=== PATIENT | female | born 1990 | race Caucasian/White ===

== ENCOUNTER 2022-01-09 21:10 | Outpatient (CLI) | payer MEDICAID ==
[~2022-01-09] VITALS: Ht 170.2 cm; Wt 77.4 kg
[2022-01-09 21:25] VITALS: BP 120/67
[2022-01-09 21:45] LABS: BILIRUBIN,URINE NEGATIVE (NEGATIVE); CLARITY,URINE CLEAR; COLOR,URINE YELLOW; GLUCOSE, URINE (UA) NEGATIVE (NEGATIVE); KETONES,URINE NEGATIVE (NEGATIVE); LEUKOCYTE ESTERASE ,URINE TRACE (NEGATIVE); NITRITE,URINE POSITIVE (NEGATIVE); PH,URINE 6.5 (5-9); PROTEIN,URINE NEGATIVE (NEGATIVE)
[2022-01-09 22:15] LABS: BACTERIA,URINE MODERATE /HPF
[2022-01-09] MEDS ORDERED: NS IV 1000 ML 1,000 ML ONE (23:25)
[2022-01-09] MEDS ORDERED: AMOXICILLIN 250 MG (POLYMOX) CAP PO ONE (23:30)
[2022-01-09] MEDS ORDERED: NS IV 1000 ML 1,000 ML IV SCH (23:30)
[2022-01-09] MEDS ORDERED: AMOXICILLIN 500 MG (POLYMOX) CAP PO ONE (23:38)
[2022-01-10] MEDS ORDERED: NS IV 1000 ML 1,000 ML IV SCH (00:30)
[2022-01-10 00:46] VITALS: BP 108/61
[2022-01-10 08:45] VITALS: BP 89/44
[2022-01-10] MEDS ORDERED: AMOX500T2 PO (09:53)
--- NOTE | 2022-01-10 09:54 | Clinic Account Progress/Dx ---
Clinic Account Progress/Dx DIAGNOSIS: Date Seen by Provider: Jan 10, 2022 Time Seen by Provider: 09:40 Term intrauterine 37 weeks gestation Urinary tract infection Contractions without cervical change Progress Note: Pt came in on 01/09 and was having frequent contractions, noted to have one heart rate deceleration when marielena back to back, so she was given IVF and observed overnight. heart rate tracing category I at time of discharge and she had decreased frequency of contractions with no cervical change. KILLIAN YUAN MD Jan 10, 2022 09:54
[2022-01-10 10:08] VITALS: BP 118/58
== END 2022-01-10 10:05 | disposition home or self-care (01) ==
LOC: LDRP 21:10 → WSo 21:10
PROVIDERS: ATTEND Family Medicine
DX: O42.92 Full-term premature rupture of membranes, unspecified as to length of time between rupture and onset of labor (principal); Z3A.37 37 weeks gestation of pregnancy
CPT/HCPCS: 81000; 84112; 87088

== ENCOUNTER 2022-01-12 23:48 | Inpatient (IN) | payer MEDICAID ==
[~2022-01-12] VITALS: Ht 170.2 cm; Wt 76.2 kg
[~2022-01-12 23:48] MED LIST: AMOX500T2 PO
[2022-01-13] VITALS (22 sets, daily range): BP systolic 94–133; BP diastolic 46–69
[2022-01-13 00:13] LABS: BILIRUBIN,URINE NEGATIVE (NEGATIVE); CLARITY,URINE CLEAR; COLOR,URINE YELLOW; GLUCOSE, URINE (UA) NEGATIVE (NEGATIVE); KETONES,URINE NEGATIVE (NEGATIVE); LEUKOCYTE ESTERASE ,URINE NEGATIVE (NEGATIVE); NITRITE,URINE NEGATIVE (NEGATIVE); PROTEIN,URINE NEGATIVE (NEGATIVE)
[2022-01-13 00:34] LABS: BACTERIA,URINE NEGATIVE /HPF; SQUAMOUS EPITHELIAL CELL,UR 0-2 /HPF; WBC,URINE RARE /HPF
[2022-01-13] MEDS ORDERED: fentaNYL 2 mcg/ml BUPIVA 0.125 100 ML ONE (00:37)
[2022-01-13] MEDS ORDERED: D5 LR IV SOLUTION 1,000 ML IV ONE (00:38)
[2022-01-13 01:00] LABS: BASOPHILS % (AUTO) 0 % (0-10); EOSINOPHILS # (AUTO) 0.1 10^3/uL (0.0-0.3); EOSINOPHILS % (AUTO) 1 % (0-10); HEMATOCRIT 31 % (35-52); HEMOGLOBIN 10.2 g/dL (11.5-16.0); LYMPHOCYTES # (AUTO) 3.2 10^3/uL (1.0-4.0); LYMPHOCYTES % (AUTO) 24 % (12-44); MEAN CORPUSCULAR HEMOGLOBIN 31 pg (25-34); MEAN CORPUSCULAR HGB CONC 33 g/dL (32-36); MEAN CORPUSCULAR VOLUME 95 fL (80-99); MEAN PLATELET VOLUME 11.1 fL (9.0-12.2); MONOCYTES # (AUTO) 1.3 10^3/uL (0.0-1.0); MONOCYTES % (AUTO) 9 % (0-12); NEUTROPHILS # (AUTO) 8.6 10^3/uL (1.8-7.8); NEUTROPHILS % (AUTO) 65 % (42-75); PLATELET COUNT 232 10^3/uL (130-400); WHITE BLOOD COUNT 13.3 10^3/uL (4.3-11.0)
[2022-01-13] MEDS ORDERED: fentaNYL 2 mcg/ml BUPIVA 0.125 100 ML IV SCH (01:00)
[2022-01-13] MEDS ORDERED: D5 LR IV SOLUTION 1,000 ML IV SCH (01:00)
[2022-01-13] MEDS ORDERED: MINERAL OIL 30 ML OIL TOP PRN (01:00)
[2022-01-13] MEDS ORDERED: CATHETER FLUSH 10 ML SYR IV PRN (01:00)
[2022-01-13] MEDS ORDERED: NALOXONE 0.4 MG/ML 1 ML (NARCAN) VIAL IV PRN (01:00)
[2022-01-13] MEDS ORDERED: LACTATED RINGERS 1,000 ML IV ONE (01:00)
[2022-01-13] MEDS ORDERED: fentaNYL INJ 100 MCG/2 ML AMP ONE (02:18)
[2022-01-13] MEDS ORDERED: OXYTOCIN PRE-MIX DRIP 500 ML IV ONE ×2 (02:32→03:45)
[2022-01-13] MEDS: OXYTOCIN PRE-MIX DRIP 500 ML IV SCH ×2 (03:09→03:39)
[2022-01-13] MEDS ORDERED: LIDOCAINE 1% INJ 50 ML (XYLOCAINE) VIAL ONE (03:12)
--- NOTE | 2022-01-13 03:47 | History & Physical-OB ---
OB - Chief Complaint & HPI Date/Time Date of Admission: Date of Admission: Jan 13, 2022 at 00:27 Date seen by a Provider: Jan 13, 2022 Time Seen by a Provider: 03:02 Chief Complaint/History OB-Reason for Admission/Chief: Onset of Labor Hx : 2 Hx Para: 1 Expected Date of Delivery: Jan 25, 2022 Gestational Age in Weeks: 38 Gestational Age in Days: 2 History of Labs A+, Ab neg Rub Imm HIV/RPR/HepB/C NR Normal GTT GBS Neg Allergies and Home Medications Allergies Coded Allergies: No Known Drug Allergies (Unverified , 01/09/22) Patient Home Medication List Home Medication List Reviewed: Yes Amoxicillin (Amoxicillin) 500 Mg Tablet, 500 MG PO BID Prescribed by: KILLIAN YUAN on 01/10/22 0953 Last Action: Reviewed OB - History Hx of Present Ultrasounds: Normal mid trimester US, Other (Transition of care @ 28 weeks, initiated care in [place] in 1st trimester) Obstetrical Complications: None Medical Complications: None Obstetrical History Hx : 2 Hx Para: 1 Number of Living Children: 1 Patient Past Medical History N/a Social History/Family History Alcohol Use: Denies Use Recreational Drug Use: No Smoking Cessation: Current some day smoker 2nd Hand Smoke Exposure: No Immunizations Influenza Vaccine Up-to-Date: No; Not Current Tetanus Booster (TDap): Less than 5yrs Rubella: immune RPR/VDRL: Negative GBS Status: Negative HBsAG: Negative OB - Admission Exam Physical Exam Vitals: Vital Signs 01/13/22 00:00 Temp 36.8 Pulse 101 Resp 18 Pulse Ox 97 O2 Delivery Room Air HEENT: NCAT Heart: Rhythm Normal Lungs: Clear Abdomen: Gravid Extremities: Normal Cervical Dilatation: 8cm Effacement: 100% Station: 0 Membranes: Ruptured Amniotic Fluid: Other (Bloody show) Heart Rate: 130's Accelerations: Accelerations Present Decelerations: Early Decelerations Short Term Variability: Present Driller Helper Variability: Average (6-25) Contractions on Admission: < 5 Minutes Apart Intensity: Moderate Labs Laboratory Tests Test 01/13/22 00:00 01/13/22 00:50 Range/Units Urine Color YELLOW Urine Clarity CLEAR Urine pH 7.0 5-9 Urine Specific [place] 1.020 1.016-1.022 Urine Protein NEGATIVE NEGATIVE Urine Glucose (UA) NEGATIVE NEGATIVE Urine Ketones NEGATIVE NEGATIVE Urine Nitrite NEGATIVE NEGATIVE Urine Bilirubin NEGATIVE NEGATIVE Urine Urobilinogen 0.2 < = 1.0 MG/DL Urine Leukocyte Esterase NEGATIVE NEGATIVE Urine RBC (Auto) NEGATIVE NEGATIVE Urine RBC NONE /HPF Urine WBC RARE /HPF Urine Squamous Epithelial Cells 0-2 /HPF Urine Crystals NONE /LPF Urine Bacteria NEGATIVE /HPF Urine Casts NONE /LPF Urine Mucus NEGATIVE /LPF Urine Culture Indicated NO Membranes Rupture POSITIVE White Blood Count 13.3 H 4.3-11.0 10^3/uL Red Blood Count 3.26 L 3.80-5.11 10^6/uL Hemoglobin 10.2 L 11.5-16.0 g/dL Hematocrit 31 L 35-52 % Mean Corpuscular Volume 95 80-99 fL Mean Corpuscular Hemoglobin 31 25-34 pg Mean Corpuscular Hemoglobin Concent 33 32-36 g/dL Red Cell Distribution Width 12.9 10.0-14.5 % Platelet Count 232 130-400 10^3/uL Mean Platelet Volume 11.1 9.0-12.2 fL Immature Granulocyte % (Auto) 1 % Neutrophils (%) (Auto) 65 42-75 % Lymphocytes (%) (Auto) 24 12-44 % Monocytes (%) (Auto) 9 0-12 % Eosinophils (%) (Auto) 1 0-10 % Basophils (%) (Auto) 0 0-10 % Neutrophils # (Auto) 8.6 H 1.8-7.8 10^3/uL Lymphocytes # (Auto) 3.2 1.0-4.0 10^3/uL Monocytes # (Auto) 1.3 H 0.0-1.0 10^3/uL Eosinophils # (Auto) 0.1 0.0-0.3 10^3/uL Basophils # (Auto) 0.0 0.0-0.1 10^3/uL Immature Granulocyte # (Auto) 0.1 0.0-0.1 10^3/uL OB - Assessment/Plan/Diagnosis Assessment Assessment: active labor Admission Dx third trimester 38 weeks gestation Admission Status: Inpatient Order (span 2 midnights) Reason for Inpatient Admission: Active labor Plan Other Plan 31 yo @ 38.2 wga here for active labor Plan - Expectant management - GBS neg - Epidural for pain control Copy Copies To 1: TRISH GLOVER MD, HOLLY R MD Jan 13, 2022 03:47
[2022-01-13] MEDS ORDERED: BENZOCAINE/MENTHOL (DERMOPLAST) 56 ML CAN TP PRN (04:00)
[2022-01-13] MEDS ORDERED: WITCH HAZEL(TUCKS) 40 EA JAR TOP PRN (04:00)
--- NOTE | 2022-01-13 04:02 | OB Labor & Delivery Record ---
Vag Delivery Note Vag Delivery Note Date of Delivery: 01/13/22 Preoperative Diagnosis: Lucas Harding is a (31 /Para 2 / 1, Gestational Age (wks)38.2 here in active labor Postoperative Diagnosis: Same Surgeon: TRISH GLOVER MD Metal Coater Operator: None Anesthesia: Epidural Delivery Type: Vaccum assisted delivery of the head, @ 0302 Findings: Viable famale , apgars 8/9, weight 7#4, 3285 grams Lacerations: Left labial laceration Intact placenta with 3 vessel cord. No nuchal cord, body cord or shoulder dystocia Estimated Blood Loss: 125 ml Complications: None Condition: Stable Description of Procedure: The patient is a 31 year old female who presented in active labor. She was admitted and informed consent was obtained. Her labor course was unremarkable. She progressed to complete dilatation and began to push. She was then set up for delivery. The 's head was delivered atraumatically in the DONALDO position after vacuum assisted delivery of head with 1 push. The shoulders and remainder of the 's body were then delivered without difficulty. Upon delivery, the head was held below the level of the perineum and the mouth and nares were bulb suctioned. The cord was doubly clamped and cut by FOB after 3 min delay and the infant was handed off to the pediatric staff. An intact placenta with 3-vessel cord delivered via Chang and there was found to be minimal bleeding.~ Vigorous fundal massage was performed and the fundus was found to be firm. IV oxytocin was given. Examination of the vagina and perineum revealed a left labial laceration repaired in the usual fashion with 3-0 vicryl suture. Following the repair, sponge, instrument and needle counts were correct. Mom and baby were both in stable condition in the labor suite. Vitals - Labs Vital Signs - I&O Vital Signs Date Time Temp Pulse Resp B/P (MAP) Pulse Ox O2 Delivery O2 Flow Rate FiO2 01/13/22 00:00 36.8 101 18 97 Room Air Labs Laboratory Tests 01/13/22 00:00: Urine Color YELLOW, Urine Clarity CLEAR, Urine pH 7.0, Urine Specific [place] 1.020, Urine Protein NEGATIVE, Urine Glucose (UA) NEGATIVE, Urine Ketones NEGATIVE, Urine Nitrite NEGATIVE, Urine Bilirubin NEGATIVE, Urine Urobilinogen 0.2, Urine Leukocyte Esterase NEGATIVE, Urine RBC (Auto) NEGATIVE, Urine RBC NONE, Urine WBC RARE, Urine Squamous Epithelial Cells 0-2, Urine Crystals NONE, Urine Bacteria NEGATIVE, Urine Casts NONE, Urine Mucus NEGATIVE, Urine Culture Indicated NO, Membranes Rupture POSITIVE 01/13/22 00:50: White Blood Count 13.3H, Red Blood Count 3.26L, Hemoglobin 10.2L, Hematocrit 31L , Mean Corpuscular Volume 95, Mean Corpuscular Hemoglobin 31, Mean Corpuscular Hemoglobin Concent 33, Red Cell Distribution Width 12.9, Platelet Count 232, Mean Platelet Volume 11.1, Immature Granulocyte % (Auto) 1, Neutrophils (%) (Auto) 65, Lymphocytes (%) (Auto) 24, Monocytes (%) (Auto) 9, Eosinophils (%) (Auto) 1, Basophils (%) (Auto) 0, Neutrophils # (Auto) 8.6H, Lymphocytes # (Auto) 3.2, Monocytes # (Auto) 1.3H, Eosinophils # (Auto) 0.1, Basophils # (Auto) 0.0, Immature Granulocyte # (Auto) 0.1 TRISH GLOVER MD Jan 13, 2022 04:02
[2022-01-13] MEDS ORDERED: IBUPROFEN 600 MG (MOTRIN) TAB PO ONE (04:42)
[2022-01-13] MEDS: IBUPROFEN 600 MG (MOTRIN) TAB PO SCH ×3 (04:44→21:57)
[2022-01-13] MEDS ORDERED: CATHETER FLUSH 10 ML SYR IV SCH ×2 (06:00)
[2022-01-13] MEDS: ACETAMINOPHEN 500 MG TAB (TYLENOL) PO SCH ×2 (08:46→15:37)
[2022-01-13] MEDS: DOCUSATE SODIUM 100 MG (COLACE) CAP PO SCH ×2 (08:46→21:57)
[2022-01-13] MEDS: FERROUS SULF 325 MG (IRON) TAB PO SCH (08:46)
[2022-01-13] MEDS: PRENATAL VITAMIN 1 EA TAB PO SCH (08:46)
--- NOTE | 2022-01-13 13:17 | Anesthesia-Regional Post-Op ---
Regional Patient Condition Mental Status: Alert, Oriented x3 Circulation: Same as Pre-Op Headache: Absent Sensation: Full Recovery Motor Block: Absent Post Op Complications Complications None Follow Up Care/Instructions Patient Instructions None needed. Anesthesia/Patient Condition Patient is doing well, no complaints, stable vital signs, no apparent adverse anesthesia problems. No complications reported per nursing. KEESHA NICHOLSON CRNA Jan 13, 2022 13:17
[2022-01-14 04:24] VITALS: BP 110/55
[2022-01-14] MEDS: IBUPROFEN 600 MG (MOTRIN) TAB PO SCH ×2 (04:24→10:55)
[2022-01-14 05:41] LABS: BASOPHILS # (AUTO) 0.1 10^3/uL (0.0-0.1); BASOPHILS % (AUTO) 1 % (0-10); EOSINOPHILS # (AUTO) 0.2 10^3/uL (0.0-0.3); EOSINOPHILS % (AUTO) 1 % (0-10); HEMATOCRIT 26 % (35-52); HEMOGLOBIN 8.5 g/dL (11.5-16.0); LYMPHOCYTES # (AUTO) 3.8 10^3/uL (1.0-4.0); LYMPHOCYTES % (AUTO) 30 % (12-44); MEAN CORPUSCULAR HEMOGLOBIN 31 pg (25-34); MEAN CORPUSCULAR HGB CONC 32 g/dL (32-36); MEAN CORPUSCULAR VOLUME 97 fL (80-99); MEAN PLATELET VOLUME 11.6 fL (9.0-12.2); MONOCYTES # (AUTO) 1.3 10^3/uL (0.0-1.0); MONOCYTES % (AUTO) 10 % (0-12); NEUTROPHILS # (AUTO) 7.5 10^3/uL (1.8-7.8); NEUTROPHILS % (AUTO) 59 % (42-75); PLATELET COUNT 195 10^3/uL (130-400); WHITE BLOOD COUNT 12.9 10^3/uL (4.3-11.0)
[2022-01-14] MEDS: FERROUS SULF 325 MG (IRON) TAB PO SCH (08:27)
[2022-01-14] MEDS: ACETAMINOPHEN 500 MG TAB (TYLENOL) PO SCH (08:27)
[2022-01-14] MEDS: DOCUSATE SODIUM 100 MG (COLACE) CAP PO SCH (08:27)
[2022-01-14] MEDS: PRENATAL VITAMIN 1 EA TAB PO SCH (08:27)
[2022-01-14 08:28] VITALS: BP 98/52
[2022-01-14] MEDS ORDERED: IBUP-844 PO (09:23)
[2022-01-14] MEDS ORDERED: PNV1TABL67 PO (09:23)
[2022-01-14] MEDS ORDERED: FERR325T24 PO (09:23)
[2022-01-14] MEDS ORDERED: DOCU100C37 PO (09:23)
--- NOTE | 2022-01-14 09:23 | Discharge Summary ---
Discharge Summary Hospital Course Hospital Course Date of Admission: Jan 13, 2022 at 00:27 Admission Diagnosis : Spontaneous rupture of membranes at full term Family Physician/Provider: Sujatha Melendez MD Date of Discharge: 01/14/22 Discharge Diagnosis: s/p vacuum assisted vaginal delivery asymptomatic acute blood loss () anemia Hospital Course: Pt admitted after SROM at home at 3 cm cervical dilation, rapid progression with outlet vacuum assisted vaginal delivery. anemia asymptomatic, discharged with iron and vitamin. Was being treated for UTI prior to admission, antibiotics continued on d/c. Labs and Pending Lab Test: Laboratory Tests 01/14/22 05:19: White Blood Count 12.9H, Red Blood Count 2.72L, Hemoglobin 8.5L, Hematocrit 26L, Mean Corpuscular Volume 97, Mean Corpuscular Hemoglobin 31, Mean Corpuscular Hemoglobin Concent 32, Red Cell Distribution Width 13.1, Platelet Count 195, Mean Platelet Volume 11.6, Immature Granulocyte % (Auto) 1, Neutrophils (%) (Auto) 59, Lymphocytes (%) (Auto) 30, Monocytes (%) (Auto) 10, Eosinophils (%) (Auto) 1, Basophils (%) (Auto) 1, Neutrophils # (Auto) 7.5, Lymphocytes # (Auto) 3.8, Monocytes # (Auto) 1.3H, Eosinophils # (Auto) 0.2, Basophils # (Auto) 0.1, Immature Granulocyte # (Auto) 0.1 Home Meds Active Pnv Plus Multivit Tab (Pnv with Ca,No.72/Iron/FA) 1 Each Tablet 1 Ea PO DAILY@0700 Docusate Sodium 100 Mg Capsule 100 Mg PO BID Ibu (Ibuprofen) 600 Mg Tablet 600 Mg PO Q6HR PRN Ferosul (Ferrous Sulfate) 325 Mg Tablet 325 Mg PO DAILY Amoxicillin 500 Mg Tablet 500 Mg PO BID Assessment/Pt DC Instructions Follow up with Dr. Melendez in 6 weeks for visit. Discharge Diet: No Restrictions Activity as Tolerated: Yes (avoid strenuous activity x 6 weeks, nothing in the vagina for 6 weeks) Discharge Physical Examination Allergies: Coded Allergies: No Known Drug Allergies (Unverified , 01/09/22) General Appearance: No Apparent Distress, WD/WN Respiratory: Lungs Clear, Normal Breath Sounds Cardiovascular: Regular Rate, Rhythm, No Murmur Gastrointestinal: Other (fundus firm below umbilicus, nontender) Extremity: No Pedal Edema Skin: Normal Color, Warm/Dry Neurologic/Psychiatric: Alert, No Motor/Sensory Deficits KILLIAN YUAN MD Jan 14, 2022 09:23
== END 2022-01-14 11:10 | disposition home or self-care (01) | DRG 806 ==
LOC: WSo 23:48 → LDRP 23:49 → WSo 01-13 00:27 → LDRP 01-13 00:27
PROVIDERS: ADMIT Family Medicine; ATTEND Family Medicine
PROC: 10D07Z6 Extraction of Products of Conception, Vacuum, Via Natural or Artificial Opening (ICD-10-PCS; principal; 2022-01-13)
PROC: 0UQMXZZ Repair Vulva, External Approach (ICD-10-PCS; 2022-01-13)
DX: O99.334 Smoking (tobacco) complicating childbirth (principal); D62 Acute posthemorrhagic anemia; Z37.0 Single live birth; Z3A.38 38 weeks gestation of pregnancy; F17.210 Nicotine dependence, cigarettes, uncomplicated; O90.81 Anemia of the puerperium
CPT/HCPCS: 36415; 81000; 84112; 85025; 86850; 86900; 86901; 99212

== ENCOUNTER 2022-07-10 19:21 | Emergency (ER) | payer MEDICAID ==
[~2022-07-10 19:21] MED LIST changes: +DOCU100C37 PO; +FERR325T24 PO; +IBUP-844 PO; +PNV1TABL67 PO
[2022-07-10] MEDS ORDERED: KETOROLAC 30 MG/ML VIAL IVP ONE (19:30)
[2022-07-10] MEDS ORDERED: morphine INJ 10 MG/ML 1ML (SYR OR VIAL) IVP STA (19:30)
[2022-07-10] MEDS ORDERED: NS IV 1000 ML 1,000 ML IV STA (19:32)
--- NOTE | 2022-07-10 19:34 | ED Abdominal Pain ---
General Chief Complaint: Abdominal/GI Problems Stated Complaint: ABD PAIN Source of Information: Patient Exam Limitations: No Limitations History of Present Illness Date Seen by Provider: Jul 10, 2022 Time Seen by Provider: 19:23 Initial Comments 32-year-old female with no pertinent past medical history coming in due to lower abdominal pain. Started at noon yesterday (>24 hours ago), constant, sharp/crampy pain. Nothing really seems to make it better or worse. Has not tried any medicines for it as of yet. Feels similar to a couple years ago when she had a ruptured ovarian cyst. She did have a baby 6 months ago, had an IUD placed 1 month ago, and LMP was roughly 3-1/2 weeks ago. Denies any dysuria, hematuria, urinary frequency, vaginal discharge or odor, diarrhea, nausea, vomiting, weakness, numbness, rash, chest pain, shortness of breath, fever, chills, or any other concerns. Allergies and Home Medications Allergies Coded Allergies: No Known Drug Allergies (Unverified , 01/09/22) Patient Home Medication List Home Medication List Reviewed: Yes Amoxicillin (Amoxicillin) 500 Mg Tablet, 500 MG PO BID Prescribed by: KILLIAN YUAN on 01/10/22 09 Docusate Sodium (Docusate Sodium) 100 Mg Capsule, 100 MG PO BID Prescribed by: KILLIAN YUAN on 01/14/22922 Ferrous Sulfate (Ferosul) 325 Mg Tablet, 325 MG PO DAILY Prescribed by: KILLIAN YUAN on 01/14/22922 Ibuprofen (Ibu) 600 Mg Tablet, 600 MG PO Q6HR PRN for PAIN-MODERATE (5-7) Prescribed by: KILLIAN YUAN on 01/14/22922 Pnv with Ca,No.72/Iron/FA (Pnv Plus Multivit Tab) 1 Each Tablet, 1 EA PO DAILY@0700 Prescribed by: KILLIAN YUAN on 01/14/22922 Review of Systems Review of Systems Constitutional: No fever EENTM: No Blurred Vision Respiratory: Denies Cough Gastrointestinal: Abdominal Pain Genitourinary: No Symptoms Reported Musculoskeletal: no symptoms reported Skin: no symptoms reported Psychiatric/Neurological: No Symptoms Reported Endocrine: No Symptoms Reported Hematologic/Lymphatic: No Symptoms Reported All Other Systems Reviewed Negative Unless Noted: Yes Past Rrpxcuz-Gnmfzh-Giifws Hx Patient Social History Tobacco Use?: Yes Tobacco type used: Cigarettes Use of E-Cig and/or Vaping dev: No Substance use?: No Alcohol Use?: No Pt feels they are or have been: No Immunizations Up To Date Tetanus Booster (TDap): Less than 5yrs Past Medical History Surgeries: Yes Tonsillectomy Physical Exam Vital Signs Vital Signs - First Documented 07/10/22 19:24 Temp 36.7 Pulse 105 Resp 20 B/P (MAP) 130/78 (95) Pulse Ox 97 O2 Delivery Room Air Capillary Refill : Height/Weight/BMI Height: '" Weight: lbs. oz. kg; 26.30 BMI Method: General Appearance: WD/WN, no apparent distress HEENT: PERRL/EOMI, normal ENT inspection, pharynx normal Neck: non-tender, full range of motion, supple, normal inspection Respiratory: chest non-tender, lungs clear, normal breath sounds, no respiratory distress, no accessory muscle use Cardiovascular: regular rate, rhythm, no edema, no murmur Gastrointestinal: normal bowel sounds, soft; No distended, No guarding, No rebound; tenderness Extremities: normal range of motion, non-tender, normal inspection, no pedal ed ning, no calf tenderness, normal capillary refill Back: normal inspection Neurologic/Psychiatric: no motor/sensory deficits, alert, normal mood/affect Skin: normal color, warm/dry Lymphatic: no adenopathy Progress/Results/Core Measures Results/Orders Lab Results Laboratory Tests Test 07/10/22 19:26 07/10/22 19:30 Range/Units Urine Color YELLOW Urine Clarity CLEAR Urine pH 6.0 5-9 Urine Specific [place] 1.010 L 1.016-1.022 Urine Protein NEGATIVE NEGATIVE Urine Glucose (UA) NEGATIVE NEGATIVE Urine Ketones NEGATIVE NEGATIVE Urine Nitrite NEGATIVE NEGATIVE Urine Bilirubin NEGATIVE NEGATIVE Urine Urobilinogen 0.2 < = 1.0 MG/DL Urine Leukocyte Esterase NEGATIVE NEGATIVE Urine RBC (Auto) NEGATIVE NEGATIVE Urine RBC NONE /HPF Urine WBC 0-2 /HPF Urine Squamous Epithelial Cells 2-5 /HPF Urine Crystals NONE /LPF Urine Bacteria TRACE /HPF Urine Casts NONE /LPF Urine Mucus NEGATIVE /LPF Urine Culture Indicated NO White Blood Count 12.8 H 4.3-11.0 10^3/uL Red Blood Count 4.05 3.80-5.11 10^6/uL Hemoglobin 12.9 11.5-16.0 g/dL Hematocrit 37 35-52 % Mean Corpuscular Volume 92 80-99 fL Mean Corpuscular Hemoglobin 32 25-34 pg Mean Corpuscular Hemoglobin Concent 35 32-36 g/dL Red Cell Distribution Width 12.4 10.0-14.5 % Platelet Count 282 130-400 10^3/uL Mean Platelet Volume 9.8 9.0-12.2 fL Immature Granulocyte % (Auto) 0 % Neutrophils (%) (Auto) 64 42-75 % Lymphocytes (%) (Auto) 26 12-44 % Monocytes (%) (Auto) 8 0-12 % Eosinophils (%) (Auto) 1 0-10 % Basophils (%) (Auto) 1 0-10 % Neutrophils # (Auto) 8.2 H 1.8-7.8 10^3/uL Lymphocytes # (Auto) 3.4 1.0-4.0 10^3/uL Monocytes # (Auto) 1.0 0.0-1.0 10^3/uL Eosinophils # (Auto) 0.2 0.0-0.3 10^3/uL Basophils # (Auto) 0.1 0.0-0.1 10^3/uL Immature Granulocyte # (Auto) 0.0 0.0-0.1 10^3/uL Sodium Level 138 135-145 MMOL/L Potassium Level 4.1 3.6-5.0 MMOL/L Chloride Level 107 98-107 MMOL/L Carbon Dioxide Level 20 L 21-32 MMOL/L Anion Gap 11 5-14 MMOL/L Blood Urea Nitrogen 7 7-18 MG/DL Creatinine 0.54 L 0.60-1.30 MG/DL Estimat Glomerular Filtration Rate 126 BUN/Creatinine Ratio 13 Glucose Level 100 70-105 MG/DL Calcium Level 8.9 8.5-10.1 MG/DL Corrected Calcium 8.5 8.5-10.1 MG/DL Total Bilirubin 0.2 0.1-1.0 MG/DL Aspartate Amino Transf (AST/SGOT) 12 5-34 U/L Alanine Aminotransferase (ALT/SGPT) 11 0-55 U/L Alkaline Phosphatase 66 40-136 U/L Total Protein 6.8 6.4-8.2 GM/DL Albumin 4.5 3.2-4.5 GM/DL Lipase 55 8-78 U/L My Orders Orders - CATRACHO CABRERA MD Urine Bedside (07/10/22 19:25) Ct Abdomen/Pelvis W (07/10/22 19:30) Cbc With Automated Diff (07/10/22 19:30) Comprehensive Metabolic Panel (07/10/22 19:30) Lipase (07/10/22 19:30) Ua Culture If Indicated (07/10/22 19:30) Morphine Injection (Morphine Injection (07/10/22 19:30) Ketorolac Injection (Toradol Injection) (07/10/22 19:30) Ns Iv 1000 Ml (Sodium Chloride 0.9%) (07/10/22 19:32) Iohexol Injection (Omnipaque 350 Mg/Ml 1 (07/10/22 19:45) Received Contrast (Hold Metformin- Contr (07/10/22 19:45) Ns (Ivpb) (Sodium Chloride 0.9% Ivpb Bag (07/10/22 19:45) Medications Given in ED Current Medications Medications Dose Ordered Sig/Shawna Route Start Time Stop Time Status Last Admin Dose Admin Iohexol 100 ml ONCE ONCE IV 07/10/22 19:45 07/10/22 19:46 DC 07/10/22 19:49 100 ML Ketorolac Tromethamine 15 mg ONCE ONCE IVP 07/10/22 19:30 07/10/22 19:31 DC 07/10/22 19:35 15 MG Sodium Chloride 100 ml ONCE ONCE IV 07/10/22 19:45 07/10/22 19:46 DC 07/10/22 19:48 100 ML Vital Signs/I&O 07/10/22 19:24 Temp 36.7 Pulse 105 Resp 20 B/P (MAP) 130/78 (95) Pulse Ox 97 O2 Delivery Room Air Progress Progress Note : Progress Note 32-year-old female presenting for lower abdominal pain. ABCs were intact and vitals are stable on presentation. Physical exam with lower abdominal tenderness but no signs of peritonitis. An IV was placed and she was given a bolus of IV fluids, morphine for pain, as well as Toradol for pain. Basic labs obtained and are significant for slightly elevated white blood cell count, normal urinalysis without evidence of infection, normal kidney function, negative test, normal LFTs, normal lipase. CT abdomen and pelvis obtained and is significant for a large ovarian cyst roughly 5 cm. There is also potentially a vaginal abscess. I did a digital exam of the vagina with a crop adjuster in the room, and she has no pain in that area and no abscess felt. In regards to the large cyst, she does have pain but it has improved. I discussed with her the phenomenon of ovarian torsion and described this to her. I discussed that she has had constant pain for over 24 hours, and given that, if it is torsion, there is nothing that can be done. Per our hospital protocols with ultrasound, they cannot be called in for pelvic pain for ovarian torsion if its been greater than 24 hours, and the protocol is to have it done urgently the next day. She also discussed with me quite frankly that it is okay with her if she loses her ovary as she does not want more children. I discussed that even if her ovary looks normal, without large cyst she likely will want to get it removed because of the risk for torsion in the future. I discussed this with the patient and I wrote the outpatient order for her for the ultrasound. She did improve pain with the morphine and the Toradol. I believe she is stable for discharge with outpatient follow-up. She was sent home with strict return precautions Diagnostic Imaging Diagonstic Imaging: CT (abd/pelvis) Comments NAME: COCO LAGUERRE [facility] REC#: [id number] PT STATUS: REG ER : 1990 PHYSICIAN: CATRACHO CABRERA MD ADMIT DATE: 07/10/22/ER FS Draft Date of Exam:07/10/22 CT ABDOMEN/PELVIS W PROCEDURE: CT abdomen and pelvis with contrast. TECHNIQUE: Multiple contiguous axial images were obtained through the abdomen and pelvis after administration of intravenous contrast. Auto Exposure Controls were utilized during the CT exam to meet ALARA standards for radiation dose reduction. All CT scans use one or more of the following dose optimizing techniques: automated exposure control, MA and/or KvP adjustment based on patient size and exam type or iterative reconstruction. DATE: July 10, 2022. COMPARISON: None. INDICATION: 32-year-old female, abdominal pain for two days. FINDINGS: There is mild dependent atelectasis in the right and left lower lobes. The heart is not enlarged. There is no pericardial effusion. The liver is unremarkable in size and contour. There is no identified liver lesion. The main, right and left portal veins are patent. The gallbladder is unremarkable. There is no identified intrahepatic or extrahepatic bile duct dilation. The main pancreatic duct is not abnormally dilated. Unremarkable appearance of the pancreatic parenchyma. The spleen is normal in size. The adrenal glands are unremarkable. Unremarkable appearance of the renal parenchyma. The urinary collecting systems are not distended. There is no identified renal or ureteral stone. The urinary bladder is unremarkable. Uterus is heterogeneous in attenuation which is nonspecific. There is an intrauterine contraceptive device in the midline uterus, likely in the endometrial cavity. There is a cystic left adnexal mass on axial image 159 measuring up to approximately 5.5 x 5.0 cm in size. The right adnexa is grossly unremarkable in appearance on limited CT assessment. The intestinal tract is not distended. The appendix is unremarkable. There is no free intraperitoneal air. There is no drainable fluid collection. There is a small amount of free pelvic fluid. There is no identified abnormally enlarged lymph node in the abdomen or pelvis which meets CT size criteria for adenopathy. There is a cystic focus on axial image 216 measuring 10 mm in size which is along the lateral aspect of the base of the vaginal tissues at its most posterior aspect. This potentially could reflect a cyst. Correlation for focal pain at this site is recommended. A fluid collection could also have this appearance. This is at the inferior margin of the field of view which does limit evaluation for adjacent inflammatory stranding. There is no acute osseous abnormality. IMPRESSION: CT abdomen and pelvis: 1. Probable left ovarian cyst measuring up to 5.6 x 5.0 cm in size. Pelvic ultrasound could be considered for further assessment. 2. Small amount of free pelvic fluid which may be physiologic. 3. Cystic focus at the level of the lateral and posterior margin of the base of the vagina which could relate to a cyst although fluid collection such as abscess would be difficult to exclude. Recommend correlation for focal pain at this site. Dictated on workstation # [id number] Dict: 07/10/222007 Trans: 07/10/222048 PJE [id number] Interpreted by: JORGE LUIS DUDLEY MD Electronically signed by: Departure Impression Primary Impression: Lower abdominal pain Additional Impression: Ovarian cyst Qualified Codes: N83.201 - Unspecified ovarian cyst, right side Disposition: HOME, SELF-CARE Condition: Stable Departure-Patient Inst. Decision time for Depature: 20:40 Referrals: JAMI LORENZO HOLLY R MD (PCP/Family) Primary Care Physician Patient Instructions: Abdominal Pain, Adult ED Add. Discharge Instructions: I recommend taking 600 mg of ibuprofen every 6 hours and 1000 mg of Tylenol every 6 hours. If you have pain on top of this I recommend taking the oxycodone. He can take Zofran for nausea. Call first thing in the morning to get the ultrasound scheduled and say you are told that it can be done tomorrow. If you are having trouble with this, my recommendation would be to go to the ER in [place] to expedite this. Ultimately I think you need to follow-up with Dr. Lorenzo to have this ovarian cyst removed if that is what the ultrasound still shows Scripts Ondansetron (Ondansetron Odt) 4 Mg Tab.rapdis 4 MG PO Q6H PRN for NAUSEA/VOMITING-1ST LINE for 5 Days, #20 TAB Prov: CATRACHO CABRERA MD 07/10/22 Oxycodone HCl (Oxycodone HCl) 5 Mg Tablet 5 MG PO Q6H PRN for PAIN-SEVERE (8-10) for 3 Days, #12 TAB Prov: CATRACHO CABRERA MD 07/10/22 Work/School Note: Work Release Form Date Seen in the Emergency Department: Jul 10, 2022 Return to Work: Jul 12, 2022 Restrictions: No Restrictions CATRACHO CABRERA MD Jul 10, 2022 19:34
[2022-07-10 19:36] LABS: BASOPHILS # (AUTO) 0.1 10^3/uL (0.0-0.1); BASOPHILS % (AUTO) 1 % (0-10); EOSINOPHILS # (AUTO) 0.2 10^3/uL (0.0-0.3); EOSINOPHILS % (AUTO) 1 % (0-10); HEMATOCRIT 37 % (35-52); HEMOGLOBIN 12.9 g/dL (11.5-16.0); LYMPHOCYTES # (AUTO) 3.4 10^3/uL (1.0-4.0); LYMPHOCYTES % (AUTO) 26 % (12-44); MEAN CORPUSCULAR HEMOGLOBIN 32 pg (25-34); MEAN CORPUSCULAR HGB CONC 35 g/dL (32-36); MEAN CORPUSCULAR VOLUME 92 fL (80-99); MEAN PLATELET VOLUME 9.8 fL (9.0-12.2); MONOCYTES % (AUTO) 8 % (0-12); NEUTROPHILS # (AUTO) 8.2 10^3/uL (1.8-7.8); NEUTROPHILS % (AUTO) 64 % (42-75); PLATELET COUNT 282 10^3/uL (130-400); WHITE BLOOD COUNT 12.8 10^3/uL (4.3-11.0)
[2022-07-10 19:37] LABS: BILIRUBIN,URINE NEGATIVE (NEGATIVE); CLARITY,URINE CLEAR; COLOR,URINE YELLOW; GLUCOSE, URINE (UA) NEGATIVE (NEGATIVE); KETONES,URINE NEGATIVE (NEGATIVE); LEUKOCYTE ESTERASE ,URINE NEGATIVE (NEGATIVE); NITRITE,URINE NEGATIVE (NEGATIVE); PROTEIN,URINE NEGATIVE (NEGATIVE)
[2022-07-10 19:41] LABS: BACTERIA,URINE TRACE /HPF; WBC,URINE 0-2 /HPF
[2022-07-10] MEDS ORDERED: IOHEXOL 350 MG/ML 100 ML (OMNIPAQUE 350) VIAL IV ONE (19:45)
[2022-07-10] MEDS ORDERED: NS 100 ML (IVPB) BAG IV ONE (19:45)
[2022-07-10] MEDS ORDERED: HOLD METFORMIN - RECEIVED CONTRAST 20 ML VIAL IV SCH (19:45)
[2022-07-10 19:54] LABS: POTASSIUM 4.1 MMOL/L (3.6-5.0)
[2022-07-10 19:55] LABS: ALBUMIN 4.5 GM/DL (3.2-4.5); BILIRUBIN,TOTAL 0.2 MG/DL (0.1-1.0); CALCIUM 8.9 MG/DL (8.5-10.1); CREATININE SERUM 0.54 MG/DL (0.60-1.30); TOTAL PROTEIN 6.8 GM/DL (6.4-8.2)
--- NOTE | 2022-07-10 20:51 | Diagnostic Imaging Report ---
PROCEDURE: CT abdomen and pelvis with contrast. TECHNIQUE: Multiple contiguous axial images were obtained through the abdomen and pelvis after administration of intravenous contrast. Auto Exposure Controls were utilized during the CT exam to meet ALARA standards for radiation dose reduction. All CT scans use one or more of the following dose optimizing techniques: automated exposure control, MA and/or KvP adjustment based on patient size and exam type or iterative reconstruction. DATE: July 10, 2022. COMPARISON: None. INDICATION: 32-year-old female, abdominal pain for two days. FINDINGS: There is mild dependent atelectasis in the right and left lower lobes. The heart is not enlarged. There is no pericardial effusion. The liver is unremarkable in size and contour. There is no identified liver lesion. The main, right and left portal veins are patent. The gallbladder is unremarkable. There is no identified intrahepatic or extrahepatic bile duct dilation. The main pancreatic duct is not abnormally dilated. Unremarkable appearance of the pancreatic parenchyma. The spleen is normal in size. The adrenal glands are unremarkable. Unremarkable appearance of the renal parenchyma. The urinary collecting systems are not distended. There is no identified renal or ureteral stone. The urinary bladder is unremarkable. Uterus is heterogeneous in attenuation which is nonspecific. There is an intrauterine contraceptive device in the midline uterus, likely in the endometrial cavity. There is a cystic left adnexal mass on axial image 159 measuring up to approximately 5.5 x 5.0 cm in size. The right adnexa is grossly unremarkable in appearance on limited CT assessment. The intestinal tract is not distended. The appendix is unremarkable. There is no free intraperitoneal air. There is no drainable fluid collection. There is a small amount of free pelvic fluid. There is no identified abnormally enlarged lymph node in the abdomen or pelvis which meets CT size criteria for adenopathy. There is a cystic focus on axial image 216 measuring 10 mm in size which is along the lateral aspect of the base of the vaginal tissues at its most posterior aspect. This potentially could reflect a cyst. Correlation for focal pain at this site is recommended. A fluid collection could also have this appearance. This is at the inferior margin of the field of view which does limit evaluation for adjacent inflammatory stranding. There is no acute osseous abnormality. IMPRESSION: CT abdomen and pelvis: 1. Probable left ovarian cyst measuring up to 5.6 x 5.0 cm in size. Pelvic ultrasound could be considered for further assessment. 2. Small amount of free pelvic fluid which may be physiologic. 3. Cystic focus at the level of the lateral and posterior margin of the base of the vagina which could relate to a cyst although fluid collection such as abscess would be difficult to exclude. Recommend correlation for focal pain at this site. Dictated by: Dictated on workstation # [id number]
[2022-07-10 21:20] VITALS: BP 105/55
[2022-07-10] MEDS ORDERED: OXYC5TAB PO (21:20)
[2022-07-10] MEDS ORDERED: ONDA4TAB11 PO (21:20)
[2022-07-11] MEDS ORDERED: IBUP-1773 PO ×2 (15:56→16:01)
[2022-07-11] MEDS ORDERED: OXYC-199 PO ×2 (15:56→16:01)
[2022-07-11] MEDS ORDERED: ACET-93 PO (16:01)
== END 2022-07-10 21:30 | disposition home or self-care (01) ==
LOC: EDUNIT# 19:21 → ER FS 19:22
DX: N83.202 Unspecified ovarian cyst, left side (principal); D72.829 Elevated white blood cell count, unspecified; F17.210 Nicotine dependence, cigarettes, uncomplicated; Z28.310 Unvaccinated for COVID-19
CPT/HCPCS: 36415; 74177; 80053; 81000; 83690; 84703; 85025; Q9967

== ENCOUNTER 2022-07-11 12:18 | Day surgery (SDC) | payer MEDICAID ==
[2022-07-11] VITALS (10 sets, daily range): BP systolic 97–108; BP diastolic 42–72
[~2022-07-11] VITALS: Ht 170 cm; Wt 67.5 kg
[~2022-07-11 12:18] MED LIST changes: -ACET-93 PO; -IBUP-1773 PO; -OXYC-199 PO
[2022-07-11 12:45] LABS: BASOPHILS # (AUTO) 0.1 10^3/uL (0.0-0.1); BASOPHILS % (AUTO) 1 % (0-10); EOSINOPHILS # (AUTO) 0.1 10^3/uL (0.0-0.3); EOSINOPHILS % (AUTO) 1 % (0-10); HEMATOCRIT 36 % (35-52); HEMOGLOBIN 12.3 g/dL (11.5-16.0); LYMPHOCYTES # (AUTO) 2.8 10^3/uL (1.0-4.0); LYMPHOCYTES % (AUTO) 24 % (12-44); MEAN CORPUSCULAR HEMOGLOBIN 32 pg (25-34); MEAN CORPUSCULAR HGB CONC 34 g/dL (32-36); MEAN CORPUSCULAR VOLUME 95 fL (80-99); MEAN PLATELET VOLUME 9.7 fL (9.0-12.2); MONOCYTES # (AUTO) 0.9 10^3/uL (0.0-1.0); MONOCYTES % (AUTO) 8 % (0-12); NEUTROPHILS # (AUTO) 7.7 10^3/uL (1.8-7.8); NEUTROPHILS % (AUTO) 67 % (42-75); PLATELET COUNT 280 10^3/uL (130-400); WHITE BLOOD COUNT 11.6 10^3/uL (4.3-11.0)
[2022-07-11 13:00] LABS: CALCIUM 8.7 MG/DL (8.5-10.1)
[2022-07-11 13:05] LABS: CREATININE SERUM 0.66 MG/DL (0.60-1.30)
--- NOTE | 2022-07-11 13:41 | ED GU-Female ---
General Chief Complaint: Abdominal/GI Problems Stated Complaint: LOWER ABD/PELVIC PAIN Nursing Triage Note: pt presents to ed via pov from home with complaints of lower abdominal/pelvic pain x 2 days. pt was seen in [facility] last night and told she had a ovarian cyst that she needed a follow up US today. Source: patient Exam Limitations: no limitations History of Present Illness Date Seen by Provider: Jul 11, 2022 Time Seen by Provider: 12:24 Initial Comments This 32-year-old woman presents to the emergency room from the ultrasound department where she just received a pelvic ultrasound for evaluation of ovarian cyst and pelvic pain. She had presented to the emergency room in [place] last night and underwent thorough evaluation including a CT scan. At that time, her pain had been present for greater than 24 hours. Her pain was rather intense and persistent. CT revealed a large left ovarian cyst greater than 5 cm. Based on callback protocol for evaluation of ovarian torsion, she was not immediately sent to [place] for ultrasound. Protocol for pain greater than 24 hours recommended ultrasound the following morning which patient did receive today. I received a call from Dr. Bacon, radiologist, immediately after the ultrasound expressing concern for ovarian torsion. The possibility of torsion was discussed between the patient and Dr. Cabrera last night and patient came to the hospital today prepared that she may need to have surgery for ovarian torsion. Patient has a history of pain from ovarian cysts and actually would not be disappointed if nephrectomy was necessary because she is done having children and would like to reduce risk for future ovarian cyst. Patient reports her pain is presently controlled at 5/10 after taking a hydrocodone at approximately 09:45. She has been n.p.o. since that time. Her last solid food consumption was at 20:20. She has normal vital signs and is a septic in appearance. CT also showed a fluid collection adjacent to the vagina concerning for possible abscess. This was also evaluated and documented by Dr. Cabrera. He performed a chaperoned pelvic exam and evaluated that area. He noted no evidence of abscess, infection, or even tenderness. Patient denies any pain in the vaginal area. Dr. Simpson, planning lead on-call, was notified of patient's situation upon her arrival to the ER. Allergies and Home Medications Allergies Coded Allergies: No Known Drug Allergies (Unverified , 01/09/22) Patient Home Medication List Home Medication List Reviewed: Yes Amoxicillin (Amoxicillin) 500 Mg Tablet, 500 MG PO BID Prescribed by: KILLIAN YUAN on 01/10/22952 Docusate Sodium (Docusate Sodium) 100 Mg Capsule, 100 MG PO BID Prescribed by: KILLIAN YUAN on 01/14/22922 Ferrous Sulfate (Ferosul) 325 Mg Tablet, 325 MG PO DAILY Prescribed by: KILLIAN YUAN on 01/14/22922 Ibuprofen (Ibu) 600 Mg Tablet, 600 MG PO Q6HR PRN for PAIN-MODERATE (5-7) Prescribed by: KILLIAN YUAN on 01/14/22922 Ondansetron (Ondansetron Odt) 4 Mg Tab.rapdis, 4 MG PO Q6H PRN for NAUSEA/VOMITING-1ST LINE Prescribed by: CATRACHO CABRERA on 07/10/222119 Oxycodone HCl (Oxycodone HCl) 5 Mg Tablet, 5 MG PO Q6H PRN for PAIN-SEVERE (8- 10) Prescribed by: CATRACHO CABRERA on 07/10/222119 Pnv with Ca,No.72/Iron/FA (Pnv Plus Multivit Tab) 1 Each Tablet, 1 EA PO DAILY@0700 Prescribed by: KILLIAN YUAN on 01/14/22922 Review of Systems Review of Systems Constitutional: no symptoms reported EENTM: no symptoms reported Respiratory: no symptoms reported Cardiovascular: no symptoms reported Gastrointestinal: no symptoms reported Genitourinary: see HPI : No Musculoskeletal: no symptoms reported Skin: no symptoms reported Psychiatric/Neurological: No Symptoms Reported Endocrine: No Symptoms Reported Hematologic/Lymphatic: No Symptoms Reported Past Ntszbbm-Pbghtz-Sqilce Hx Patient Social History Tobacco Use?: Yes Tobacco type used: Cigarettes Smoking Status: Current Everyday Smoker Substance use?: Yes Substance type: Marijuana Alcohol Use?: No Pt feels they are or have been: No Immunizations Up To Date Tetanus Booster (TDap): Less than 5yrs Past Medical History Surgeries: Yes Tonsillectomy Respiratory: No Cardiac: No Neurological: No : No Reproductive Disorders: Yes Female Reproductive Disorders: Ovarian Cyst (And ruptures) Genitourinary: No Gastrointestinal: No Musculoskeletal: No Endocrine: No HEENT: No Cancer: No Psychosocial: No Integumentary: No Physical Exam Vital Signs Vital Signs - First Documented 07/11/22 12:33 Temp 35.9 Pulse 68 Resp 16 B/P (MAP) 111/65 (80) Pulse Ox 100 Capillary Refill : Less Than 3 Seconds Height, Weight, BMI Height: '" Weight: lbs. oz. 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 nml as tested, no motor/sensory deficits, alert, normal mood/affect, oriented x 3 Skin: normal color, warm/dry Progress/Results/Core Measures Suspected Sepsis SIRS Temperature: Pulse: 68 Respiratory Rate: 16 Laboratory Tests 07/11/22 12:38: White Blood Count 11.6H Blood Pressure 111 /65 Mean: 80 Laboratory Tests 07/11/22 12:38: Creatinine 0.66, Platelet Count 280 Results/Orders Lab Results Laboratory Tests Test 07/11/22 12:38 Range/Units White Blood Count 11.6 H 4.3-11.0 10^3/uL Red Blood Count 3.84 3.80-5.11 10^6/uL Hemoglobin 12.3 11.5-16.0 g/dL Hematocrit 36 35-52 % Mean Corpuscular Volume 95 80-99 fL Mean Corpuscular Hemoglobin 32 25-34 pg Mean Corpuscular Hemoglobin Concent 34 32-36 g/dL Red Cell Distribution Width 12.6 10.0-14.5 % Platelet Count 280 130-400 10^3/uL Mean Platelet Volume 9.7 9.0-12.2 fL Immature Granulocyte % (Auto) 0 % Neutrophils (%) (Auto) 67 42-75 % Lymphocytes (%) (Auto) 24 12-44 % Monocytes (%) (Auto) 8 0-12 % Eosinophils (%) (Auto) 1 0-10 % Basophils (%) (Auto) 1 0-10 % Neutrophils # (Auto) 7.7 1.8-7.8 10^3/uL Lymphocytes # (Auto) 2.8 1.0-4.0 10^3/uL Monocytes # (Auto) 0.9 0.0-1.0 10^3/uL Eosinophils # (Auto) 0.1 0.0-0.3 10^3/uL Basophils # (Auto) 0.1 0.0-0.1 10^3/uL Immature Granulocyte # (Auto) 0.0 0.0-0.1 10^3/uL Sodium Level 139 135-145 MMOL/L Potassium Level 4.0 3.6-5.0 MMOL/L Chloride Level 109 H 98-107 MMOL/L Carbon Dioxide Level 21 21-32 MMOL/L Anion Gap 9 5-14 MMOL/L Blood Urea Nitrogen 6 L 7-18 MG/DL Creatinine 0.66 0.60-1.30 MG/DL Estimat Glomerular Filtration Rate 120 BUN/Creatinine Ratio 9 Glucose Level 75 70-105 MG/DL Calcium Level 8.7 8.5-10.1 MG/DL C-Reactive Protein High Sensitivity 0.12 0.00-0.50 MG/DL My Orders Orders - YOVANI FAJARDO MD Basic Metabolic Panel (07/11/22 12:24) Cbc With Automated Diff (07/11/22 12:24) Hs C Reactive Protein (07/11/22 12:24) Hcg,Qualitative Serum (07/11/22 12:24) Fentanyl Inj (Sublimaze Injection) (07/11/22 13:45) Ondansetron Injection (Zofran Injectio (07/11/22 13:45) Vital Signs/I&O 07/11/22 12:33 Temp 35.9 Pulse 68 Resp 16 B/P (MAP) 111/65 (80) Pulse Ox 100 Capillary Refill : Less Than 3 Seconds Blood Pressure Mean: 80 Progress Note : Time: 13:41 Progress Note Labs have been obtained. Patient did eventually request medication for pain and fentanyl was ordered. She is concerned about possible nausea with opioids. Zofran will be administered with the fentanyl. Dr. Simpson promptly arrived to the emergency room to evaluate the patient. He discussed the situation with her, and patient is agreeable to surgery for evaluation of possible ovarian torsion and if appropriate surgical procedures to treat. She will go directly from the emergency department to the operating room. Diagnostic Imaging Diagonstic Imaging: Ultrasound Plain Films/CT/US/NM/MRI: pelvis Comments Ultrasound discussed with radiologist Dr. Bacon and report reviewed. See report below: NAME: COCO LAGUERRE [employer] REC#: [id number] PT STATUS: REG CLI : 1990 PHYSICIAN: CATRACHO CABRERA MD ADMIT DATE: 07/11/22/RAD Draft Date of Exam:07/11/22 US NON OB PELVIS COMP/TRANSVAG PROCEDURE: US Non-ob pelvis comp/trans. TECHNIQUE: Multiple realtime grayscale images were obtained of the pelvis in various projections endovaginally. Transabdominal imaging was also performed. INDICATION: Pelvic pain. Abnormal CT of the pelvis. COMPARISON: CT abdomen and pelvis with IV contrast 07/10/2022. FINDINGS: The uterus measures 10.0 x 5.0 x 5.9 cm. IUD. Nabothian cysts. The endometrium measures 0.8 cm. The right ovary measures 3.4 x 2.1 x 3.1 cm. Normal flow by color Doppler in the right ovary. The left ovary measures 6.5 x 4.2 x 6.0 cm. There is a well-circumscribed cyst in the left ovary with reticular lacy performed echoes consistent with a hemorrhagic cyst measuring up to 6.0 cm. Interrogation by color Doppler of the left ovary demonstrates only a single punctate focus of flow. This ovary also has an edematous appearance on both the CT and ultrasound. There is some flow demonstrated by power Doppler. Small amount of free fluid adjacent the left ovary. IMPRESSION: 1. Hemorrhagic cyst in the left ovary measuring up to 6.0 cm. 2. There is minimal flow seen in the left ovary and an edematous appearance of the ovarian tissue. There is a small amount of free fluid adjacent to left ovary. These findings are suspicious for left ovarian torsion. Findings discussed with Dr. Yovani Joshua at 12:19 PM on 07/11/2022. Dictated on workstation # [id number] Dict: 07/11/22 1210 Trans: 07/11/[address] [facility] [id number] Interpreted by: LAURA BACON MD Departure Communication (Admissions) Time/Spoke to Admitting Phy: 12:57 Dr. Simpson Impression Primary Impression: Torsion of left ovary Additional Impression: Ovarian cyst, left Disposition: 01 HOME, SELF-CARE Condition: Improved Admissions Decision to Admit Reason: Admit from ER (General) Decision to Admit/Date: Jul 11, 2022 Time/Decision to Admit Time: 12:57 Departure-Patient Inst. Referrals: TRISH GLOVER MD (PCP/Family) Primary Care Physician YOVANI FAJARDO MD Jul 11, 2022 13:41
[2022-07-11] MEDS ORDERED: ONDANSETRON 4 MG/2 ML (SDV) Z0FRAN IVP ONE (13:45)
[2022-07-11] MEDS ORDERED: LACTATED RINGERS 1,000 ML IV SCH (13:45)
[2022-07-11] MEDS ORDERED: fentaNYL INJ 100 MCG/2 ML AMP IVP ONE ×2 (13:45→14:30)
--- NOTE | 2022-07-11 13:54 | History & Physical-OB/GYN ---
History of Present Illness History of Present Illness Reason for visit/HPI Left Ovarian Cyst, probable torsion. Patient presents with 2 days of waxing and waning yet progressively worsening bilateral pelvic pain that is 5/10 after hydrocodone, 8/10 at worse. Now she is in the waning period. This pain does not radiate. She has ovarian cysts that have ruptured and been painful but this is not consistent with that simple ovarian cyst pain in that it has slowly progressed, lasted longer and has come on strong and then lessened but no less than a 5/[address] Scan and US confirm ovarian cyst < 10 cm, but poor blood flow on doppler study. Free fluid is noted. There is a slightly elevated WBC count. Initial Comments ER physician: This 32-year-old woman presents to the emergency room from the ultrasound department where she just received a pelvic ultrasound for evaluation of ovarian cyst and pelvic pain. She had presented to the emergency room in [place] last night and underwent thorough evaluation including a CT scan. At that time, her pain had been present for greater than 24 hours. Her pain was rather intense and persistent. CT revealed a large left ovarian cyst greater than 5 cm. Based on callback protocol for evaluation of ovarian torsion, she was not immediately sent to [place] for ultrasound. Protocol for pain greater than 24 hours recommended ultrasound the following morning which patient did receive today. I received a call from Dr. Bacon, radiologist, immediately after the ultrasound expressing concern for ovarian torsion. The possibility of torsion was discussed between the patient and Dr. Cabrera last night and patient came to the hospital today prepared that she may need to have surgery for ovarian torsion. Patient has a history of pain from ovarian cysts and actually would not be disappointed if nephrectomy was necessary because she is done having children and would like to reduce risk for future ovarian cyst. Patient reports her pain is presently controlled at 5/10 after taking a hydrocodone at approximately 09:45. She has been n.p.o. since that time. Her last solid food consumption was at 20:20. She has normal vital signs and is a septic in appearance. CT also showed a fluid collection adjacent to the vagina concerning for possible abscess. This was also evaluated and documented by Dr. Cabrera. He performed a chaperoned pelvic exam and evaluated that area. He noted no evidence of abscess, infection, or even tenderness. Patient denies any pain in the vaginal area. Dr. Simpson, system configuration specialist on-call, was notified of patient's situation upon her arrival to the ER. 07/11/22 12:33 Temp 35.9 Pulse 68 Resp 16 B/P (MAP) 111/65 (80) Pulse Ox 100 Test 07/11/22 12:38 Range/Units White Blood Count 11.6 H 4.3-11.0 10^3/uL Red Blood Count 3.84 3.80-5.11 10^6/uL Hemoglobin 12.3 11.5-16.0 g/dL Hematocrit 36 35-52 % Mean Corpuscular Volume 95 80-99 fL Mean Corpuscular Hemoglobin 32 25-34 pg Mean Corpuscular Hemoglobin Concent 34 32-36 g/dL Red Cell Distribution Width 12.6 10.0-14.5 % Platelet Count 280 130-400 10^3/uL Mean Platelet Volume 9.7 9.0-12.2 fL Immature Granulocyte % (Auto) 0 % Neutrophils (%) (Auto) 67 42-75 % Lymphocytes (%) (Auto) 24 12-44 % Monocytes (%) (Auto) 8 0-12 % Eosinophils (%) (Auto) 1 0-10 % Basophils (%) (Auto) 1 0-10 % Neutrophils # (Auto) 7.7 1.8-7.8 10^3/uL Lymphocytes # (Auto) 2.8 1.0-4.0 10^3/uL Monocytes # (Auto) 0.9 0.0-1.0 10^3/uL Eosinophils # (Auto) 0.1 0.0-0.3 10^3/uL Basophils # (Auto) 0.1 0.0-0.1 10^3/uL Immature Granulocyte # (Auto) 0.0 0.0-0.1 10^3/uL Sodium Level 139 135-145 MMOL/L Potassium Level 4.0 3.6-5.0 MMOL/L Chloride Level 109 H 98-107 MMOL/L Carbon Dioxide Level 21 21-32 MMOL/L Anion Gap 9 5-14 MMOL/L Blood Urea Nitrogen 6 L 7-18 MG/DL Creatinine 0.66 0.60-1.30 MG/DL Estimat Glomerular Filtration Rate 120 BUN/Creatinine Ratio 9 Glucose Level 75 70-105 MG/DL Calcium Level 8.7 8.5-10.1 MG/DL C-Reactive Protein High Sensitivity 0.12 0.00-0.50 MG/DL 07/11/22 12:33 Temp 35.9 Pulse 68 Resp 16 B/P (MAP) 111/65 (80) Pulse Ox 100 Diagnostic Imaging Diagonstic Imaging: Ultrasound Plain Films/CT/US/NM/MRI: pelvis Comments Ultrasound discussed with radiologist Dr. Bacon and report reviewed. See report below: NAME: [facility] REC#: [id number] PT STATUS: REG CLI : 1990 PHYSICIAN: CATRACHO CABRERA MD ADMIT DATE: 07/11/22/RAD Draft Date of Exam:07/11/22 US NON OB PELVIS COMP/TRANSVAG PROCEDURE: US Non-ob pelvis comp/trans. TECHNIQUE: Multiple realtime grayscale images were obtained of the pelvis in various projections endovaginally. Transabdominal imaging was also performed. INDICATION: Pelvic pain. Abnormal CT of the pelvis. COMPARISON: CT abdomen and pelvis with IV contrast 07/10/2022. FINDINGS: The uterus measures 10.0 x 5.0 x 5.9 cm. IUD. Nabothian cysts. The endometrium measures 0.8 cm. The right ovary measures 3.4 x 2.1 x 3.1 cm. Normal flow by color Doppler in the right ovary. The left ovary measures 6.5 x 4.2 x 6.0 cm. There is a well-circumscribed cyst in the left ovary with reticular lacy performed echoes consistent with a hemorrhagic cyst measuring up to 6.0 cm. Interrogation by color Doppler of the left ovary demonstrates only a single punctate focus of flow. This ovary also has an edematous appearance on both the CT and ultrasound. There is some flow demonstrated by power Doppler. Small amount of free fluid adjacent the left ovary. IMPRESSION: 1. Hemorrhagic cyst in the left ovary measuring up to 6.0 cm. 2. There is minimal flow seen in the left ovary and an edematous appearance of the ovarian tissue. There is a small amount of free fluid adjacent to left ovary. These findings are suspicious for left ovarian torsion. Findings discussed with Dr. Yovani Joshua at 12:19 PM on 07/11/2022. Dictated on workstation # [id number] Dict: 07/11/22 1210 Trans: 07/11/22 1235 [facility] [id number] Interpreted by: LAURA BACON MD Per report from [place], serum test was negative. Date of Admission 07/11/2022 Time Seen by a Provider: 13:25 I consulted on this patient on 07/11/22 13:48 Attending Physician Sujatha Melendez MD Admitting Physician Admitting Physician: Attending Physician: Gordo Simpson MD Consult Allergies and Home Medications Allergies Coded Allergies: No Known Drug Allergies (Unverified , 01/09/22) Patient Home Medication List Home Medication List Reviewed: Yes Past Wzubzwu-Gxevsn-Msqfjd Hx Patient Social History Marrital Status: Smoking Status: Current Everyday Smoker 2nd Hand Smoke Exposure: No Alcohol Use?: No Pt feels they are or have been: No Tobacco type used: Cigarettes Immunizations Up To Date Tetanus Booster (TDap): Less than 5yrs Surgeries Yes Tonsillectomy Respiratory No Currently Using CPAP: No Currently Using BIPAP: No Cardiovascular No Neurological No Reproductive System : No Hx Reproductive Disorders: Yes (Recurrent ovarian cysts, no surgery) Sexually Transmitted Disease: No HIV/AIDS: No Female Reproductive Disorders: Denies Genitourinary No Gastrointestinal No Musculoskeletal No Endocrine History of Endocrine Disorders: No Are Your Blood Sugars Over 250: No HEENT History of HEENT Disorders: No Loss of Vision: Left Cancer No Did You Recieve Any Treatments: No Psychosocial History of Psychiatric Problem: No Integumentary History of Skin or Integumenta: No Blood Transfusions History of Blood Disorders: No Review of Systems Constitutional: no symptoms reported Respiratory: no symptoms reported Cardiovascular: no symptoms reported Gastrointestinal: RLQ, LLQ, see HPI, abdominal pain, nausea Genitourinary: no symptoms reported : No Musculoskeletal: no symptoms reported Skin: no symptoms reported Psychiatric/Neurological: No Symptoms Reported All Other Systems Reviewed Negative Unless Noted: Yes (Negative excepted noted.) Physical Exam Physical Exam Vital Signs Vital Signs Date Time Temp Pulse Resp B/P (MAP) Pulse Ox O2 Delivery O2 Flow Rate FiO2 07/11/22 12:33 35.9 68 16 111/65 (80) 100 Capillary Refill : Less Than 3 Seconds Labs Laboratory Tests 07/11/22 12:38: White Blood Count 11.6H, Red Blood Count 3.84, Hemoglobin 12.3, Hematocrit 36, Mean Corpuscular Volume 95, Mean Corpuscular Hemoglobin 32, Mean Corpuscular Hemoglobin Concent 34, Red Cell Distribution Width 12.6, Platelet Count 280, Mean Platelet Volume 9.7, Immature Granulocyte % (Auto) 0, Neutrophils (%) (Auto) 67, Lymphocytes (%) (Auto) 24, Monocytes (%) (Auto) 8, Eosinophils (%) (Auto) 1, Basophils (%) (Auto) 1, Neutrophils # (Auto) 7.7, Lymphocytes # (Auto) 2.8, Monocytes # (Auto) 0.9, Eosinophils # (Auto) 0.1, Basophils # (Auto) 0.1, Immature Granulocyte # (Auto) 0.0, Sodium Level 139, Potassium Level 4.0, Chloride Level 109H, Carbon Dioxide Level 21, Anion Gap 9, Blood Urea Nitrogen 6L, Creatinine 0.66, Estimat Glomerular Filtration Rate 120, BUN/Creatinine Ratio 9, Glucose Level 75, Calcium Level 8.7, C-Reactive Protein High Sensitivity 0.12 General Appearance: No Apparent Distress, WD/WN Respiratory: Chest Non Tender, Lungs Clear, Normal Breath Sounds, No Accessory Muscle Use, No Respiratory Distress Cardiovascular: Regular Rate, Rhythm, No Edema, No Gallop, No JVD, No Murmur, Normal Peripheral Pulses Abdominal: guarding, rebound, tenderness, RLQ Extremity: Normal Capillary Refill, Normal Inspection, Normal Range of Motion, Non Tender, No Calf Tenderness Assessment/Plan Assessment and Plan Left ovarian cyst , possible torsion Problems: (1) Ovarian cyst, left Status: Acute Assessment & Plan: Diagnostic laparoscopy, removalk of ovarian cyst, detrosion of ovary, possible oophorectomy. Risks of the surgery have been explained to include but not be limited to infection, bleeding that requires blood transfusion, anesthesia complication, reaction or allergy to medication given, DVT/ PE, removal of adnexal organ, accidental injury to bowel, bladder, ureter, pelvic or reproductive organs that may require further surgery for repair and require a large incision. Risk of recurrence of an ovarian cyst or ovarian torsion discussed. (2) Torsion of left ovary Status: Acute Admission Diagnosis Admission Status: Observation GORDO SIMPSON MD Jul 11, 2022 13:54
[2022-07-11] MEDS ORDERED: fentaNYL INJ 100 MCG/2 ML AMP ONE (14:25)
[2022-07-11] MEDS ORDERED: MIDAZOLAM 2 MG/2 ML (VERSED) VIAL ONE (14:25)
[2022-07-11] MEDS ORDERED: BUPIVACAINE 0.25% 30 ML (SENSORCAINE) VIAL ONE (14:28)
[2022-07-11] MEDS ORDERED: ONDANSETRON 4 MG/2 ML (SDV) Z0FRAN IVP PRN (14:30)
[2022-07-11] MEDS ORDERED: ROCURONIUM 50 MG/5 ML (ZEMURON) VIAL IV ONE (14:30)
[2022-07-11] MEDS ORDERED: LIDOCAINE PF 2% 5 ML (XYLOCAINE) VIAL ONE (14:30)
[2022-07-11] MEDS ORDERED: LACTATED RINGERS 1,000 ML IV PRN (14:30)
[2022-07-11] MEDS ORDERED: HYDROmorphone 2 MG/ML VIAL (DILAUDID) IV ONE (14:30)
--- NOTE | 2022-07-11 14:54 | OB/GYN Operative Report ---
Operative Report Date of Procedure:Jul 11, 2022 Preoperative Diagnosis: [Ovarian cyst, possible torsion] Postoperative Diagnosis: [Left hemorrhagic ovarian cyst] Name of the Procedure: [Diagnostic laparoscopy and removal of left ovarian cyst/ left ovarian cystectomy] Surgeon: Milvia Simpson MD Tube Winder(s): [none] Anesthesia: [General] Indications for Procedure: [Possible torsion of the ovary] Findings of the Procedure: [see below] Name and Description of the Procedure: [see below] Complications: None Disposition: [home after recover discharge are met] Diagnostic Laparoscope: PREOPERATIVE DIAGNOSIS: Pelvic Pain, Left Ovarian cyst, possible torsion POSTOPERATIVE DIAGNOSIS: Left ovarian hemorrhagic cyst FINDINGS: Posterior cul-de-sac, anterior cul-de-sac, round ligaments with their insertion at the abdominal wall all were normal except blood and fluid filled. The left ovary had no torsion but did have a prior ruptured hemorrhagic ovarian cyst of 5 to 6 cm size, no active bleeding with a smooth inner cyst lining that easily excised. The right ovary and right and left fallopian tubes were normal, size, shape and were freely mobile. No adhesions noted. The bilateral pelvic side cruz were completely normal. External Uterine appearance was normal. The liver edge and gallbladder were normal. The appendix was normal. IUD string visible to 2 cm on pelvic exam. DESCRIPTION OF PROCEDURE: After proper prep and drape, placement in supine position with dorsal lithotomy position then obtained, after SCDs were placed, after bladder catheterized, after suitable level of general anesthesia, and timeout were performed. An acorn cannula was placed into the outer cervix with an operating speculum and stabilized with a tenaculum. Pre-anesthetization with 0.25% marcaine performed in a subumbilical and midline suprapubic sites with skin incisions made. All trocars were placed under direct laparoscopic visualization and monitoring. The 5 mm subumbilical trocar was first placed after the appropriate skin incision. The peritoneum was easily identified and a blunt-tipped trocar placed intraabdominally without difficulty or involvement of visceral organs. After assurance of hemostasis and proper anatomy, after pre-anesthetization with lidocaine in the suprapubic midline area, 5 mm skin incision was made and the 5mm trocar placed intraabdominally without difficulty or involvement of visceral organs under direct laparoscopic visualization. The above findings were noted with multiple pictures taken. Stripping and removal of the left ovarian cyst wall was performed easily with good hemostasis noted after wards. An outer cyst wall portion was excised and sent with the specimen. No involvement of bladder, bowel, ureter or inappropriate tissue/ organ. After assurance of hemostasis and liberal irrigation with removal of clot, the 5 mm trocar (suprapubic) was removed and and closed with 3-0 Vicryl closed deep and closed the skin. The umbilical 5 mm trocar was removed and site closed with 3-0 Vicryl. All closures occurred without difficulty or involvement of visceral organs. They were easily closed with good anatomic effect. Dermabond was then placed on top also. After assurance of hemostasis and good anatomic effect, all instruments were removed to include the acorn cannula and the tenaculum and counts were performed by the whole team and were good. MILVIA SIMPSON MD Jul 11, 2022 14:54
[2022-07-11] MEDS ORDERED: ceFAZolin INJECTION 1,000 MG VIAL IV ONE (14:58)
[2022-07-11] MEDS ORDERED: ceFAZolin INJECTION 2,000 MG ONE (15:00)
[2022-07-11] MEDS ORDERED: BUPIVACAINE 0.25% 10 ML (SENSORCAINE) VIAL INJ ONE (15:15)
[2022-07-11] MEDS ORDERED: SEVOFLURANE (ULTANE) 15 ML INHAL SOLN ONE (15:18)
[2022-07-11] MEDS ORDERED: proPOfol 200 MG/20 ML (DIPRIVAN) VIAL IV ONE (15:18)
[2022-07-11] MEDS ORDERED: ONDANSETRON 4 MG/2 ML (SDV) Z0FRAN ONE (15:18)
[2022-07-11] MEDS ORDERED: ONDANSETRON 4 MG/2 ML (SDV) Z0FRAN IV PRN (15:45)
[2022-07-11] MEDS ORDERED: KETOROLAC 30 MG/ML VIAL IV SCH (15:45)
[2022-07-11] MEDS ORDERED: METOCLOPRAMIDE INJ 10 MG/2 ML (REGLAN) IV PRN (15:45)
--- NOTE | 2022-07-11 15:45 | Anesthesia-General Post-Op ---
General Patient Condition Mental Status/LOC: Same as Preop Cardiovascular: Satisfactory Nausea/Vomiting: Absent Respiratory: Satisfactory Pain: Controlled Complications: Absent Post Op Complications Complications None Follow Up Care/Instructions Patient Instructions None needed. Anesthesia/Patient Condition Patient Condition Patient is doing well, no complaints, stable vital signs, no apparent adverse anesthesia problems. No complications reported per nursing. DAVE THOMAS CRNA Jul 11, 2022 15:45
[2022-07-11] MEDS ORDERED: OXYC-199 PO ×2 (15:56→16:01)
[2022-07-11] MEDS ORDERED: IBUP-1773 PO ×2 (15:56→16:01)
[2022-07-11] MEDS ORDERED: HYDROmorphone 2 MG/ML VIAL (DILAUDID) ONE (15:57)
[2022-07-11] MEDS ORDERED: KETOROLAC 30 MG/ML VIAL ONE (16:01)
[2022-07-11] MEDS ORDERED: ACET-93 PO (16:01)
--- NOTE | 2022-07-11 16:03 | Discharge Inst-Simple/Standard ---
Discharge Inst-Standard Reconcile Patient Problems Problems Reviewed?: Yes Discharge Medications New, Converted or Re-Newed RX: Transmitted to Pharmacy Patient Instructions/Follow Up Plan of Care/Instructions/FU: Follow up with PCP or her personal OBGYN in 5 days Activity as Tolerated: Yes Discharge Diet: No Restrictions MILVIA WAN MD Jul 11, 2022 16:02
[2022-07-11] MEDS ORDERED: oxyCODONE/APAP 5/325MG (PERCOCET 5) TABLET ONE (16:46)
[2022-07-11] MEDS ORDERED: ACETAMINOPHEN 500 MG TAB (TYLENOL) PO SCH (18:00)
[2022-07-11] MEDS ORDERED: KETOROLAC 15 MG/ML VIAL IV SCH (18:00)
== END 2022-07-11 18:05 | disposition home or self-care (01) ==
LOC: EDUNIT# 12:18 → ER 12:20 → SDC 13:45
PROVIDERS: ATTEND Obstetrics & Gynecology
DX: N83.12 Corpus luteum cyst of left ovary (principal); F17.210 Nicotine dependence, cigarettes, uncomplicated
CPT/HCPCS: 36415; 80048; 84703; 85025; 86141

== ENCOUNTER → 2022-07-11 | Outpatient (CLI) | payer MEDICAID ==
[~2022-07-11] MED LIST changes: +ACET-93 PO; +IBUP-1773 PO; +ONDA4TAB11 PO; +OXYC-199 PO; +OXYC5TAB PO
--- NOTE | 2022-07-11 12:37 | Diagnostic Imaging Report ---
PROCEDURE: US Non-ob pelvis comp/trans. TECHNIQUE: Multiple realtime grayscale images were obtained of the pelvis in various projections endovaginally. Transabdominal imaging was also performed. INDICATION: Pelvic pain. Abnormal CT of the pelvis. COMPARISON: CT abdomen and pelvis with IV contrast 07/10/2022. FINDINGS: The uterus measures 10.0 x 5.0 x 5.9 cm. IUD. Nabothian cysts. The endometrium measures 0.8 cm. The right ovary measures 3.4 x 2.1 x 3.1 cm. Normal flow by color Doppler in the right ovary. The left ovary measures 6.5 x 4.2 x 6.0 cm. There is a well-circumscribed cyst in the left ovary with reticular lacy performed echoes consistent with a hemorrhagic cyst measuring up to 6.0 cm. Interrogation by color Doppler of the left ovary demonstrates only a single punctate focus of flow. This ovary also has an edematous appearance on both the CT and ultrasound. There is some flow demonstrated by power Doppler. Small amount of free fluid adjacent the left ovary. IMPRESSION: 1. Hemorrhagic cyst in the left ovary measuring up to 6.0 cm. 2. There is minimal flow seen in the left ovary and an edematous appearance of the ovarian tissue. There is a small amount of free fluid adjacent to left ovary. These findings are suspicious for left ovarian torsion. Findings discussed with Dr. Yovani Joshua at 12:19 PM on 07/11/2022. Dictated by: Dictated on workstation # [id number]
== END ==
LOC: RAD 10:40
PROVIDERS: ATTEND Emergency Medicine
DX: N83.202 Unspecified ovarian cyst, left side (principal)
CPT/HCPCS: 76830; 76856

== ENCOUNTER 2022-10-27 07:58 | Emergency (ER) | payer MEDICAID ==
[~2022-10-27 07:58] MED LIST changes: +ACET-93 PO; +IBUP-1773 PO; +OXYC-199 PO
--- NOTE | 2022-10-27 08:09 | ED Cough/URI ---
General Chief Complaint: Cough/Cold/Flu Symptoms Stated Complaint: FEVER; NAUSEA; TORRES; FLU EXP History of Present Illness Date Seen by Provider: Oct 27, 2022 Time Seen by Provider: 08:09 Initial Comments 32-year-old female presents with body aches, fever, headache, nausea, mild cough. She reports symptoms been going on for 3 to 4 days. Patient has known flu exposure with her being positive for influenza. She reports that she just feels miserable. No shortness of breath. Allergies and Home Medications Allergies Coded Allergies: No Known Drug Allergies (Unverified , 01/09/22) Patient Home Medication List Home Medication List Reviewed: Yes Acetaminophen (Acetaminophen) 500 Mg Tablet, 1,000 MG PO Q6HR PRN for PAIN-MILD (1-4) OR TEMPATURE Prescribed by: Gordo Simpson MD on 07/11/22 1601 Ibuprofen (Ibuprofen) 600 Mg Tablet, 600 MG PO Q6H PRN for PAIN-MILD Prescribed by: Gordo Simpson MD on 07/11/22 1601 Oxycodone HCl/Acetaminophen (Percocet 5-325 mg Tablet) 5 Mg-325 Mg Tablet, 1 TAB PO Q4H PRN for PAIN-MODERATE Prescribed by: Gordo Simpson MD on 07/11/22 1601 Review of Systems Review of Systems Constitutional: chills, fever, malaise EENTM: No throat pain Respiratory: cough; No short of breath Cardiovascular: No chest pain, No palpitations Gastrointestinal: No abdominal pain, No diarrhea; nausea, vomiting Genitourinary: no symptoms reported Musculoskeletal: no symptoms reported Skin: no symptoms reported Psychiatric/Neurological: Headache Past Srhjwou-Hxivpe-Lpliqg Hx Immunizations Up To Date Tetanus Booster (TDap): Less than 5yrs Past Medical History Surgeries: Yes Tonsillectomy Respiratory: No Currently Using CPAP: No Currently Using BIPAP: No Cardiac: No Neurological: No Reproductive Disorders: Yes (Recurrent ovarian cysts, no surgery) Female Reproductive Disorders: Denies Sexually Transmitted Disease: No HIV/AIDS: No Genitourinary: No Gastrointestinal: No Musculoskeletal: No Endocrine: No HEENT: No Loss of Vision: Left Cancer: No Did You Recieve Any Treatments: No Psychosocial: No Integumentary: No Blood Disorders: No Physical Exam Vital Signs - First Documented 10/27/22 08:00 Temp 37.0 Pulse 112 Resp 16 B/P (MAP) 110/68 (82) Pulse Ox 97 O2 Delivery Room Air Capillary Refill : Height: '" Weight: lbs. oz. kg; 23.00 BMI Method: General Appearance: WD/WN, no apparent distress Neck: full range of motion, supple Respiratory: lungs clear, normal breath sounds Cardiovascular: normal peripheral pulses, regular rate, rhythm Gastrointestinal: soft; No distended Extremities: normal range of motion Neurologic/Psychiatric: alert, normal mood/affect, oriented x 3 Skin: normal color, warm/dry Progress/Results/Core Measures Suspected Sepsis SIRS Temperature: Pulse: Respiratory Rate: Blood Pressure / Mean: Results/Orders Vital Signs/I&O 10/27/22 08:00 Temp 37.0 Pulse 112 Resp 16 B/P (MAP) 110/68 (82) Pulse Ox 97 O2 Delivery Room Air Capillary Refill : Progress Note : Progress Note Patient with influenza. Patient is outside 48 hours to start Tamiflu. Discussed with her supportive care. I will prescribe her Zofran for the nausea. She is stable and discharged Departure Impression Primary Impression: Influenza A Disposition: 01 HOME, SELF-CARE Condition: Stable Departure-Patient Inst. Referrals: TRISH GLOVER MD (PCP) Primary Care Physician Patient Instructions: Flu, Adult (DC) Add. Discharge Instructions: Plenty of fluids and rest, you may use Zofran as needed for the nausea. Tylenol or ibuprofen as needed for fever and body aches, electrolyte containing fluids such as body armor or Gatorade All discharge instructions reviewed with patient and/or family. Voiced understanding. Scripts Ondansetron (Ondansetron Odt) 4 Mg Tab.rapdis 4 MG PO Q6H PRN for NAUSEA/VOMITING, #20 TAB 0 Refills Prov: RAQUEL PAGE DO 10/27/22 RAQUEL PAGE DO Oct 27, 2022 08:09
[2022-10-27] MEDS ORDERED: ONDA4TAB11 PO (08:30)
[2022-10-27 08:31] VITALS: BP 110/68
== END 2022-10-27 08:31 | disposition home or self-care (01) ==
LOC: EDUNIT# 07:58 → ER FS 08:00
DX: J10.1 Influenza due to other identified influenza virus with other respiratory manifestations (principal); Z28.310 Unvaccinated for COVID-19
CPT/HCPCS: 99283

== ENCOUNTER 2022-12-11 16:02 | Emergency (ER) | payer MEDICAID ==
[2022-12-11] MEDS ORDERED: fentaNYL INJ 100 MCG/2 ML AMP IVP STA (16:27)
[2022-12-11] MEDS ORDERED: ORPHENADRINE 60 MG/2 ML (NORFLEX) AMP (ED ONLY) IVP STA (16:27)
[2022-12-11] MEDS ORDERED: KETOROLAC 30 MG/ML VIAL IVP STA (16:27)
[2022-12-11 16:34] LABS: BASOPHILS # (AUTO) 0.1 10^3/uL (0.0-0.1); BASOPHILS % (AUTO) 1 % (0-10); EOSINOPHILS # (AUTO) 0.1 10^3/uL (0.0-0.3); EOSINOPHILS % (AUTO) 1 % (0-10); HEMATOCRIT 39 % (35-52); HEMOGLOBIN 13.4 g/dL (11.5-16.0); LYMPHOCYTES # (AUTO) 3.7 10^3/uL (1.0-4.0); LYMPHOCYTES % (AUTO) 38 % (12-44); MEAN CORPUSCULAR HEMOGLOBIN 31 pg (25-34); MEAN CORPUSCULAR HGB CONC 34 g/dL (32-36); MEAN CORPUSCULAR VOLUME 91 fL (80-99); MEAN PLATELET VOLUME 9.5 fL (9.0-12.2); MONOCYTES # (AUTO) 0.7 10^3/uL (0.0-1.0); MONOCYTES % (AUTO) 7 % (0-12); NEUTROPHILS # (AUTO) 5.1 10^3/uL (1.8-7.8); NEUTROPHILS % (AUTO) 53 % (42-75); PLATELET COUNT 325 10^3/uL (130-400); WHITE BLOOD COUNT 9.7 10^3/uL (4.3-11.0)
--- NOTE | 2022-12-11 16:37 | ED Back Pain ---
General Chief Complaint: Lower Extremity Stated Complaint: RT GROIN/RT HIP PAIN Source of Information: Patient, Old Records (surgery report from June [address] 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 She had to clean out the basement where a sewage pipe broke. She has chronic pain in her neck and back since she was a teenager. 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 She woke up 1 morning this week and was having severe neck pain to where she was having trouble moving. She went and saw a female chiropractor here in [place] and they had adjusted her neck and back as well as her hips. She felt like the chiropractor had gotten a little too aggressive with her adjustments as she was having worse pain after the treatment. Her pain has been on the right side and going into her right hip. She felt that the pain was worse with movement and with walking. She has a young infant at home that she is not able to lift and care for like she wants because of the pain. She had found a Percocet left over from her June 2022 surgery when she had a large hemorrhagic ovarian cyst that was operated on. She did have some improvement with taking the Percocet but when it wore off the pain was just a severe. She has been trying uppa-hrq-rcszcdu acetaminophen and ibuprofen without any improvement. She denies any vaginal bleeding or vaginal discharge. There is no pain with urination. The pain in her right side and right hip started yesterday but has become more severe today. She denies any fall or injury other than the cleaning of her basement from the sewage pipe breaking and the "aggressive" adjustments by chiropractor this week. She has an appointment with Chiropractor in that does adjustments similar to what she was getting in [place] before moving here to [place]. She feels that is what she needs but it is not until Wednesday for the first available appointment. Since her pain was severe today she came to the ED to be evaluated and try to get something to help with the pain. She had to drive herself here to the ED but reports she has and family that can get her when she is discharged. Location: Lumbar Spine, Paraspinous Muscles, Other (right flank into groin and hip) Timing/Duration: 1-2 Days Severity: Severe Pain/Injury Location: Back, Neck, Pelvis (right hip and groin) Method of Injury: Other (being hunched over when cleaning from sewage pipe breaking as well as increased pain after adjustment by chiropractor) Modifying Factors: Worse With Movement; Improves With Pain Medication (percocet had helped) Associated Symptoms: muscle spasms; No fever, No weakness, No numbness in legs/feet, No tingling in legs/feet, No sensory/motor loss; lower back pain; No loss of bladder control, No loss of bowel control Allergies and Home Medications Allergies Coded Allergies: No Known Drug Allergies (Unverified , 01/09/22) Patient Home Medication List Home Medication List Reviewed: Yes Acetaminophen (Acetaminophen) 500 Mg Tablet, 1,000 MG PO Q6HR PRN for PAIN-MILD (1-4) OR TEMPATURE Prescribed by: Gordo Simpson MD on 07/11/22 1601 Ibuprofen (Ibuprofen) 600 Mg Tablet, 600 MG PO Q6H PRN for PAIN-MILD Prescribed by: Gordo Simpson MD on 07/11/22 1601 Ondansetron (Ondansetron Odt) 4 Mg Tab.rapdis, 4 MG PO Q6H PRN for NAUSEA/VOMITING Prescribed by: RAQUEL PAGE on 10/27/22 0830 Oxycodone HCl/Acetaminophen (Percocet 5-325 mg Tablet) 5 Mg-325 Mg Tablet, 1 TAB PO Q4H PRN for PAIN-MODERATE Prescribed by: Gordo Simpson MD on 07/11/22 1601 Oxycodone HCl/Acetaminophen (Oxycodone-Acetaminophen 5-325) 5 Mg-325 Mg Tablet, 1 EACH PO Q4H PRN for PAIN-SEVERE (8-10) Prescribed by: SCARLET BASURTO on 12/11/22 174 Tizanidine HCl (Tizanidine HCl) 2 Mg Tablet, 2 MG PO Q6H PRN for MUSCLE SPASMS Prescribed by: SCARLET BASURTO on 12/11/22 174 Review of Systems Constitutional: No chills, No fever EENTM: no symptoms reported Respiratory: no symptoms reported Cardiovascular: no symptoms reported Gastrointestinal: no symptoms reported Genitourinary: No dysuria, No hematuria : No (has IUD) Control/STD Prophylaxis: IUD Musculoskeletal: see HPI Skin: No change in color, No rash Psychiatric/Neurological: Denies Numbness, Denies Paresthesia Past Gmjrugg-Huxxbh-Faywgk Hx Patient Social History Tobacco Use?: No Immunizations Up To Date Tetanus Booster (TDap): Less than 5yrs First/Initial COVID19 Vaccinat: Not currently vaccinated Past Medical History Surgery/Hospitalization HX: Tonsilectomy; Ovarian cysts removal, Scoliosis, Chronic neck and back pain Surgeries: Yes Tonsillectomy Respiratory: No Currently Using CPAP: No Currently Using BIPAP: No Cardiac: No Neurological: No Reproductive Disorders: Yes (Recurrent ovarian cysts, no surgery) Female Reproductive Disorders: Denies Sexually Transmitted Disease: No HIV/AIDS: No Genitourinary: No Gastrointestinal: No Musculoskeletal: No Endocrine: No HEENT: No Loss of Vision: Left Cancer: No Did You Recieve Any Treatments: No Psychosocial: No Integumentary: No Blood Disorders: No Physical Exam Vital Signs Vital Signs - First Documented 12/11/22 16:06 Temp 36.5 Pulse 100 Resp 16 B/P (MAP) 126/89 (101) Pulse Ox 97 O2 Delivery Room Air Capillary Refill : Height, Weight, BMI Height: '" Weight: lbs. oz. kg; 23.00 BMI Method: General Appearance: Moderate Distress HEENT: PERRL/EOMI, Pharynx Normal Cardiovascular: Regular Rate, Rhythm, Normal Peripheral Pulses Respiratory: Chest Non Tender, Lungs Clear, Normal Breath Sounds Gastrointestinal: Normal Bowel Sounds, No Pulsatile Mass, Soft; No Distended, No Guarding, No Rebound; Tenderness (right lower quadrant into groin/hip) Back: No CVA Tenderness, No Vertebral Tenderness Extremity: Normal Capillary Refill; No Normal Range of Motion (decreased ROM right hip due to pain); No Pedal Edema Neurologic/Psychiatric: Alert, Oriented x3, No Motor/Sensory Deficits, director cost II- XII Norm as Tested Skin: Normal Color, Warm/Dry Progress/Results/Core Measures Results/Orders Lab Results Laboratory Tests Test 12/11/22 16:30 Range/Units White Blood Count 9.7 4.3-11.0 10^3/uL Red Blood Count 4.32 3.80-5.11 10^6/uL Hemoglobin 13.4 11.5-16.0 g/dL Hematocrit 39 35-52 % Mean Corpuscular Volume 91 80-99 fL Mean Corpuscular Hemoglobin 31 25-34 pg Mean Corpuscular Hemoglobin Concent 34 32-36 g/dL Red Cell Distribution Width 13.0 10.0-14.5 % Platelet Count 325 130-400 10^3/uL Mean Platelet Volume 9.5 9.0-12.2 fL Immature Granulocyte % (Auto) 0 % Neutrophils (%) (Auto) 53 42-75 % Lymphocytes (%) (Auto) 38 12-44 % Monocytes (%) (Auto) 7 0-12 % Eosinophils (%) (Auto) 1 0-10 % Basophils (%) (Auto) 1 0-10 % Neutrophils # (Auto) 5.1 1.8-7.8 10^3/uL Lymphocytes # (Auto) 3.7 1.0-4.0 10^3/uL Monocytes # (Auto) 0.7 0.0-1.0 10^3/uL Eosinophils # (Auto) 0.1 0.0-0.3 10^3/uL Basophils # (Auto) 0.1 0.0-0.1 10^3/uL Immature Granulocyte # (Auto) 0.0 0.0-0.1 10^3/uL Sodium Level 136 135-145 MMOL/L Potassium Level 4.1 3.6-5.0 MMOL/L Chloride Level 102 98-107 MMOL/L Carbon Dioxide Level 21 21-32 MMOL/L Anion Gap 13 5-14 MMOL/L Blood Urea Nitrogen 10 7-18 MG/DL Creatinine 0.58 L 0.60-1.30 MG/DL Estimat Glomerular Filtration Rate 124 BUN/Creatinine Ratio 17 Glucose Level 103 70-105 MG/DL Calcium Level 9.3 8.5-10.1 MG/DL Corrected Calcium 8.5-10.1 MG/DL Total Bilirubin 0.4 0.1-1.0 MG/DL Aspartate Amino Transf (AST/SGOT) 12 5-34 U/L Alanine Aminotransferase (ALT/SGPT) 13 0-55 U/L Alkaline Phosphatase 74 40-136 U/L Total Protein 7.4 6.4-8.2 GM/DL Albumin 4.9 H 3.2-4.5 GM/DL Serum Test, Qualitative NEGATIVE NEGATIVE My Orders Orders - SCARLET BASURTO MD Comprehensive Metabolic Panel (12/11/22 16:26) Ed Iv/Invasive Line Start (12/11/22 16:26) Cbc With Automated Diff (12/11/22 16:26) Ct Abdomen/Pelvis Wo (12/11/22 16:26) Hcg,Qualitative Serum (12/11/22 16:26) Ketorolac Injection (Toradol Injection) (12/11/22 16:27) Fentanyl Inj (Sublimaze Injection) (12/11/22 16:27) Orphenadrine Inj (Ed Only) (Norflex Inje (12/11/22 16:27) Methylprednisolone Acetate Inj (Depo-Med (12/11/22 17:38) Vital Signs/I&O 12/11/22 12/11/22 16:06 17:55 Temp 36.5 36.5 Pulse 100 95 Resp 16 16 B/P (MAP) 126/89 (101) 122/75 Pulse Ox 97 97 O2 Delivery Room Air Room Air Progress Progress Note #1: Progress Note Potential diagnosis of acute exacerbation of low back pain, ovarian cyst, appe ndicitis, compression fracture, hip fracture, pelvis fracture, muscle spasms. Ordered basic labs of CBC and chemistry as well as urine and test. Since she was unable to provide a urine specimen will run test on serum. Ordered IV fentanyl 50 mcg with Norflex 60 mg IV along with Toradol 30 mg IV to try and help with pain and muscle spasms. Obtain a CT scan of the abdomen and pelvis to evaluate the spine as well as right flank and groin and right hip. Progress Note #2: Progress Note CBC and chemistry were stable without acute significant normality. Her serum test was negative. On my review of the radiologist report of her CT scan she had no acute bony abnormality or intra-abdominal or pelvic findings to account for pain. She was not having appendicitis or hernia. When I reviewed the results with patient she stated that her pain was doing better and seemed to just come in waves at this point and in between the waves she was not having pain. She felt like she could rest. She states that from a pain standpoint the Percocet had helped better to let her rest when she had it in the past compared to hydrocodone. She is anxious to see the chiropractor on Wednesday in hopes that they can get her back on a regimen that would control her chronic pain and keep her from requiring any opiate or narcotic medicine. She continues to deny having any urinary complaints of the urinalysis was canceled. Since she was not eating due to the severe pain will administer an IM dose of Solu-Medrol 80 mg to help with pain and inflammation. She will have a prescription for Percocet 5/325 to take 1 every 4 hours as needed for severe pain. Dispense 5:01 days. From a muscle relaxer standpoint she states that she has taken cyclobenzaprine previously and felt it did not help. We will try tizanidine and see if that does better for her. Ordered 2 mg every 6 hours to start with. Encouraged to keep appointment with the chiropractor on Wednesday, December 16 and follow-up with her primary care as well. Advised that she could continue with ibuprofen and acetaminophen [id number] as long as she does not take more than 3 to 4 g of Tylenol in a 24-hour period. she can continue to alternate ice and heat to the areas that were hurting as well. Diagnostic Imaging Diagonstic Imaging: CT Plain Films/CT/US/NM/MRI: abdomen, pelvis Comments NAME: COCO LAGUERRE [facility] REC#: [id number] PT STATUS: REG ER : 1990 PHYSICIAN: SCARLET BASURTO MD ADMIT DATE: 12/11/22/ER FS Signed Date of Exam:12/11/22 CT ABDOMEN/PELVIS WO PROCEDURE: CT abdomen and pelvis without contrast. TECHNIQUE: Multiple contiguous axial images were obtained through the abdomen and pelvis without the use of intravenous contrast. Auto Exposure Controls were utilized during the CT exam to meet ALARA standards for radiation dose reduction. INDICATION: Right hip and groin pain. Flank pain. COMPARISON: 07/10/2022. FINDINGS: The heart is unremarkable. The lung bases are clear. The liver, spleen, pancreas, adrenal glands, and kidneys have a normal appearance. There is no pathologically enlarged mesenteric or retroperitoneal adenopathy. The bowel loops are nondilated. The appendix is visualized in the right lower quadrant and has a normal appearance. There is no free fluid or free air. No acute osseous abnormalities. Ureters and bladder are normal. An IUD is in place. There is no free air, loculated collection, or adenopathy in the pelvis. IMPRESSION: 1. No acute abnormalities in the abdomen and pelvis. No renal calculi or hydronephrosis. 2. No acute abnormality in the right hip or right groin. No evidence of hernia. Dictated by: Dictated on workstation # [id number] Dict: 12/11/221655 Trans: 12/11/221706 [id number] Interpreted by: CELINA STERLING DO Electronically signed by: CELINA STERLING DO 12/11/221706 Reviewed: Reviewed by Me Departure Impression Primary Impression: Acute exacerbation of chronic low back pain Additional Impressions: Acute right hip pain Right groin pain Disposition: HOME, SELF-CARE Condition: Stable Departure-Patient Inst. Decision time for Depature: 17:39 Referrals: TRISH GLOVER MD (PCP) Primary Care Physician Patient Instructions: Hip Pain ED, Low Back Pain ED, Pelvic Pain ED, Opioids for Short-Term Treatment of Pain ED Add. Discharge Instructions: You may continue to use heat to help with the pain and inflammation going into your back and hip. You can alternate with ice. The steroid shot from here will stay in your system and help with pain and inflammation over the next 7 to 10 days. Use the Oxycodone/Acetaminophen for severe pain, Tizanadine for muscle spasms and the waves of pain and spasms in your back and hip. Try to stay well hydrated and try to take some food when you take the oxycodone. Follow up with the chiropractor as scheduled on WednesdayDec.16. All discharge instructions reviewed with patient and/or family. Voiced understa nding. Scripts Tizanidine HCl (Tizanidine HCl) 2 Mg Tablet 2 MG PO Q6H PRN for MUSCLE SPASMS for 7 Days, #28 TAB 0 Refills Prov: SCARLET BASURTO MD 12/11/22 Oxycodone HCl/Acetaminophen (Oxycodone-Acetaminophen 5-325) 5 Mg-325 Mg Tablet 1 EACH PO Q4H PRN for PAIN-SEVERE (8-10) MDD 6 for 5 Days, #30 TAB 0 Refills Prov: SCARLET BASURTO MD 12/11/22 SCARLET BASURTO MD Dec 11, 2022 16:37
[2022-12-11 16:53] LABS: ALANINE AMINOTRANSFERASE 13 U/L (0-55); ALBUMIN 4.9 GM/DL (3.2-4.5); ALKALINE PHOSPHATASE 74 U/L (40-136); BILIRUBIN,TOTAL 0.4 MG/DL (0.1-1.0); BUN/CREATININE RATIO 17; CALCIUM 9.3 MG/DL (8.5-10.1); CARBON DIOXIDE 21 MMOL/L (21-32); CHLORIDE 102 MMOL/L (98-107); CREATININE SERUM 0.58 MG/DL (0.60-1.30); GFR ESTIMATED 124; GLUCOSE 103 MG/DL (70-105); POTASSIUM 4.1 MMOL/L (3.6-5.0); SODIUM 136 MMOL/L (135-145); TOTAL PROTEIN 7.4 GM/DL (6.4-8.2)
--- NOTE | 2022-12-11 17:00 | Diagnostic Imaging Report ---
PROCEDURE: CT abdomen and pelvis without contrast. TECHNIQUE: Multiple contiguous axial images were obtained through the abdomen and pelvis without the use of intravenous contrast. Auto Exposure Controls were utilized during the CT exam to meet ALARA standards for radiation dose reduction. INDICATION: Right hip and groin pain. Flank pain. COMPARISON: 07/10/2022. FINDINGS: The heart is unremarkable. The lung bases are clear. The liver, spleen, pancreas, adrenal glands, and kidneys have a normal appearance. There is no pathologically enlarged mesenteric or retroperitoneal adenopathy. The bowel loops are nondilated. The appendix is visualized in the right lower quadrant and has a normal appearance. There is no free fluid or free air. No acute osseous abnormalities. Ureters and bladder are normal. An IUD is in place. There is no free air, loculated collection, or adenopathy in the pelvis. IMPRESSION: 1. No acute abnormalities in the abdomen and pelvis. No renal calculi or hydronephrosis. 2. No acute abnormality in the right hip or right groin. No evidence of hernia. Dictated by: Dictated on workstation # [id number]
[2022-12-11] MEDS ORDERED: methylPREDNISolone 80 MG/ML (DEPO MEDROL) VIAL IM STA (17:38)
[2022-12-11] MEDS ORDERED: OXYC1TAB11 PO (17:43)
[2022-12-11] MEDS ORDERED: TIZA-169 PO (17:43)
[2022-12-11 17:55] VITALS: BP 122/75
== END 2022-12-11 17:56 | disposition home or self-care (01) ==
LOC: EDUNIT# 16:02 → ER FS 16:04
DX: M54.50 Low back pain, unspecified (principal); G89.29 Other chronic pain; M25.551 Pain in right hip; R10.31 Right lower quadrant pain; Z28.310 Unvaccinated for COVID-19
CPT/HCPCS: 36415; 74176; 80053; 84703; 85025

== ENCOUNTER 2023-06-13 03:48 | Emergency (ER) | payer MEDICAID ==
[~2023-06-13 03:48] MED LIST changes: +OXYC1TAB11 PO; +TIZA-169 PO
[2023-06-13] MEDS ORDERED: HYDROcodone/ACETAMINOPHEN 5 MG/325 MG TABLET PO ONE (04:00)
--- NOTE | 2023-06-13 04:03 | ED Lower Extremity ---
General Chief Complaint: Lower Extremity Stated Complaint: LEFT FOOT PAIN Source: patient Exam Limitations: no limitations History of Present Illness Date Seen by Provider: Jun 13, 2023 Time Seen by Provider: 03:51 Initial Comments 33-year-old female with no pertinent past medical history coming in due to left big toe pain. Started yesterday, worse throughout the day, woke her up in the middle the night and she was unable to put weight on it. Has never had pain like this before. Denies any fever, trauma, or any other concerns. Has not had any red meat within the past several days that she can recall. She does not drink alcohol at all. She is otherwise denying any other acute complaints. LMP was 3 weeks ago. She had 800 mg of ibuprofen 2 hours ago. Allergies and Home Medications Allergies Coded Allergies: No Known Drug Allergies (Unverified , 01/09/22) Patient Home Medication List Home Medication List Reviewed: Yes Acetaminophen (Acetaminophen) 500 Mg Tablet, 1,000 MG PO Q6HR PRN for PAIN-MILD (1-4) OR TEMPATURE Prescribed by: Gordo Simpson MD on 07/11/22 1601 Colchicine (Colchicine) 0.6 Mg Tablet, 0.6 MG PO q2 hours Prescribed by: CATRACHO CABRERA on 06/13/23 0451 Hydrocodone/Acetaminophen (Hydrocodone-Acetamin 5-325 mg) 5 Mg-325 Mg Tablet, 1 TAB PO Q6H PRN for PAIN-MODERATE (5-7) Prescribed by: CATRACHO CABRERA on 06/13/23 0452 Ibuprofen (Ibuprofen) 600 Mg Tablet, 600 MG PO Q6H PRN for PAIN-MILD Prescribed by: Gordo Simpson MD on 07/11/22 1601 Ondansetron (Ondansetron Odt) 4 Mg Tab.rapdis, 4 MG PO Q6H PRN for NAUSEA/VOMITING Prescribed by: RAQUEL PAGE on 10/27/22 0830 Oxycodone HCl/Acetaminophen (Percocet 5-325 mg Tablet) 5 Mg-325 Mg Tablet, 1 TAB PO Q4H PRN for PAIN-MODERATE Prescribed by: Gordo Simpson MD on 07/11/22 1601 Oxycodone HCl/Acetaminophen (Oxycodone-Acetaminophen 5-325) 5 Mg-325 Mg Tablet, 1 EACH PO Q4H PRN for PAIN-SEVERE (8-10) Prescribed by: SCARLET BASURTO on 12/11/221743 Tizanidine HCl (Tizanidine HCl) 2 Mg Tablet, 2 MG PO Q6H PRN for MUSCLE SPASMS Prescribed by: SCARLET BASURTO on 12/11/221742 Review of Systems Constitutional: No fever EENTM: no symptoms reported Respiratory: no symptoms reported Cardiovascular: no symptoms reported Gastrointestinal: no symptoms reported Genitourinary: no symptoms reported Musculoskeletal: see HPI Skin: no symptoms reported Psychiatric/Neurological: No Symptoms Reported Past Eqavzbw-Nwqfxl-Qjjfok Hx Patient Social History Tobacco Use?: No Use of E-Cig and/or Vaping dev: No Substance use?: No Alcohol Use?: No Pt feels they are or have been: No Immunizations Up To Date Tetanus Booster (TDap): Less than 5yrs First/Initial COVID19 Vaccinat: Not currently vaccinated Second COVID19 Vaccination Alex: Not currently vaccinated Third COVID19 Vaccination Date: Not currently vaccinated Past Medical History Surgery/Hospitalization HX: Tonsilectomy; Ovarian cysts removal, Scoliosis, Chronic neck and back pain Surgeries: Yes Tonsillectomy Respiratory: No Currently Using CPAP: No Currently Using BIPAP: No Cardiac: No Neurological: No Reproductive Disorders: Yes (Recurrent ovarian cysts, no surgery) Female Reproductive Disorders: Denies Sexually Transmitted Disease: No HIV/AIDS: No Genitourinary: No Gastrointestinal: No Musculoskeletal: No Endocrine: No HEENT: No Loss of Vision: Left Cancer: No Did You Recieve Any Treatments: No Psychosocial: No Integumentary: No Blood Disorders: No Physical Exam Vital Signs Vital Signs - First Documented 06/13/23 03:51 Temp 36.7 Pulse 104 Resp 18 B/P (MAP) 114/70 (85) Pulse Ox 98 O2 Delivery Room Air Capillary Refill : Height, Weight, BMI Height: '" Weight: lbs. oz. kg; 23.00 BMI Method: General Appearance: WD/WN, no apparent distress HEENT: PERRL/EOMI, normal ENT inspection, pharynx normal Neck: non-tender, full range of motion, supple, normal inspection Cardiovascular: regular rate, rhythm, no edema, no murmur Respiratory: chest non-tender, lungs clear, normal breath sounds, no respiratory distress, no accessory muscle use Ankles: bilateral ankle non-tender, bilateral ankle normal inspection, bilateral ankle normal range of motion, bilateral ankle no evidence of injury Feet: left foot other (Left foot pain along the big toe mostly around the MTP joint. Possibly very mild swelling compared to the other side, very mild erythema, no significant amount of warmth) Progress/Results/Core Measures Results/Orders Lab Results Laboratory Tests Test 06/13/23 04:20 Range/Units My Orders Orders - CATRACHO CABRERA MD Foot 3 View Left (06/13/23 03:57) Hydrocodone/Apap 5/325 Tablet (Hydrocod (06/13/23 04:00) Uric Acid (06/13/23 04:18) Colchicine Tablet (Colcrys Tablet) (06/13/23 04:36) Colchicine Tablet (Colcrys Tablet) (06/13/23 05:00) Medications Given in ED Current Medications Medications Dose Ordered Sig/Shawna Route Start Time Stop Time Status Last Admin Dose Admin Acetaminophen/ Hydrocodone Bitart 1 ea ONCE ONCE PO 06/13/23 04:00 06/13/23 04:01 DC 06/13/23 04:02 1 EA Colchicine 1.2 mg ONCE ONCE PO 06/13/23 05:00 06/13/23 04:54 DC 06/13/23 04:53 1.2 MG Vital Signs/I&O 06/13/23 06/13/23 03:51 04:50 Temp 36.7 36.7 Pulse 104 104 Resp 18 18 B/P (MAP) 114/70 (85) 114/70 Pulse Ox 98 98 O2 Delivery Room Air Room Air Progress Progress Note : Progress Note 33-year-old female with above history coming in due to left big toe pain. ABCs were intact and vitals were stable on presentation. Specifically, she is afebrile, and well-appearing. Physical exam with a mildly erythematous left big toe with pain maximally over the MTP joint. Differential includes gout vs pseudogout vs less likely septic arthritis. X-ray ordered and interpreted by me showing no fracture or dislocation. There are also no signs of calcium pyrophosphate deposition making pseudogout less likely. I did a swqgu-[id number] ultrasound showing a very trace amount of joint fluid. I was able to use ultrasound in real-time with a 22-gauge needle to go to the source of the small amount of fluid which would not aspirate. Fluid was likely very viscous making septic arthritis also unlikely. We will send a uric acid level as a send out for screen, although it may not be elevated an acute gouty flare. Give her hydrocodone here for pain as well as a prescription. I discussed giving colchicine for likely gout and we will send a prescription for this. I discussed that this would not improve, in fact would worsen rapidly if this were septic arthritis, and that she would need to be evaluated in the ER rapidly again if things worsen or she develops fever. I believe she is otherwise stable for discharge with outpatient follow-up. She was sent home with strict return precautions. Diagnostic Imaging Diagonstic Imaging: Xray (left foot) Departure Impression Primary Impression: Pain of left great toe Disposition: HOME, SELF-CARE Condition: Stable Departure-Patient Inst. Decision time for Depature: 05:00 Referrals: TRISH GLOVER MD (PCP/Family) Primary Care Physician Patient Instructions: Gout (DC) Add. Discharge Instructions: This is acting like a gout flare which is unusual in a female of your age, but still possible. Take the colchicine when the pharmacy opens and then again a couple hours later. Then you can switch to ibuprofen 800mg every 6 hours. Take the hydrocodone for breakthrough pain. If you develop fever, or things are getting significantly worse over the never 24-48 hours, then I would want you to be seen in the ER again. There is a very small chance this is from an infectious cause, and that is what we don't want to miss. It's more likely to be infectious if things are not improving, and in fact worsening over the next several days. Scripts Hydrocodone/Acetaminophen (Hydrocodone-Acetamin 5-325 mg) 5 Mg-325 Mg Tablet 1 TAB PO Q6H PRN for PAIN-MODERATE (5-7) for 3 Days, #12 TAB Prov: CATRACHO CABRERA MD 06/13/23 Colchicine (Colchicine) 0.6 Mg Tablet 0.6 MG PO q2 hours for 1 Day, #2 TAB Prov: CATRACHO CABRERA MD 06/13/23 Work/School Note: Work Release Form Date Seen in the Emergency Department: Jun 13, 2023 Return to Work: Jun 15, 2023 Restrictions: No Restrictions CATRACHO CABRERA MD Jun 13, 2023 04:03
[2023-06-13] MEDS ORDERED: COLCHICINE 0.6 MG TABLET PO ONE ×2 (04:36→05:00)
[2023-06-13 04:50] VITALS: BP 114/70
[2023-06-13] MEDS ORDERED: ACHD5005 PO (04:51)
[2023-06-13] MEDS ORDERED: COLC0.6T59 PO (04:51)
--- NOTE | 2023-06-13 07:57 | Diagnostic Imaging Report ---
INDICATION: Pain COMPARISON: None available. TECHNIQUE: 3 radiographs of the left foot dated 06/13/2023. FINDINGS: No acute fracture or dislocation. No destructive osseous process. Mild joint space narrowing, greatest involving the 1st MTP joint. Lisfranc joint is well aligned. Focal sclerotic lesion within the calcaneus is felt to relate to a bone island. No suspicious radiopaque foreign body. IMPRESSION: No acute osseous abnormality with low-grade degenerative changes present. Dictated by: Dictated on workstation # [id number]
== END 2023-06-13 04:54 | disposition home or self-care (01) ==
LOC: EDUNIT# 03:48 → ER FS 03:50
DX: M79.675 Pain in left toe(s) (principal); Z28.310 Unvaccinated for COVID-19
CPT/HCPCS: 36415; 73630; 84550